=== PATIENT | male | born 1955 | race Caucasian/White ===

== ENCOUNTER 2017-03-06 16:11 | Inpatient (IN) | payer BC ==
[~2017-03-06] VITALS: Ht 177.8 cm; Wt 69.4 kg
[2017-03-06] VITALS (10 sets, daily range): BP systolic 111–156; BP diastolic 71–91
[~2017-03-06 16:11] MED LIST: ASPIR 8181 MG PO; ATENOLOL50 MG PO; CATAPRES-TTS 11 EACH TD; CHLORDIAZEPOXID25 MG PO; CLONAZEPAM0.5 MG PO; CLONIDINE HCL0.1 MG PO; DICYCLOMINE HCL20 MG PO; FLAGYL250 MG PO; HUMIRA40 MG/0.8 SQ; LEVAQUIN500 MG PO; LEXAPRO10 MG PO; LOSARTAN POTAS100 MG PO; LOSARTAN POTASS50 MG PO; MEDROL4 M1 PO; METRONIDAZOLE500 MG PO; NORCO 10-325 T1 EACH PO; ORENCIA125 MG/1 M IM; ROBAXIN750 MG PO; SOMA350 MG PO; TRAZODONE HCL50 MG PO; VIAGRA; XANAX0.5 MG PO; XIFAXAN550 MG PO; Z.0.CELEBREX200 MG PO; Z.0.HUMIRA40 MG/0.1 SQ; Z.0.LOSARTAN POTASS5 PO; Z.0.NORCO 10-325 T1 PO; Z.0.TORADOL10 MG PO
[2017-03-06] MEDS ORDERED: SODIUM CHLORIDE 0.9% 1000ML 1,000 ML IV SCH (16:45)
[2017-03-06] MEDS ORDERED: REMERON15 MG PO (17:41)
[2017-03-06] MEDS ORDERED: NORCO 10-325 T1 EACH PO (17:45)
[2017-03-06] MEDS ORDERED: ISONIAZID300 MG PO (17:45)
[2017-03-06] MEDS ORDERED: ASPIR 8181 MG PO (17:45)
[2017-03-06] MEDS ORDERED: ABATACEPT 125 MG SCH (17:45)
[2017-03-06] MEDS ORDERED: METOPROLOL TART25 MG PO (17:45)
[2017-03-06] MEDS ORDERED: ATORVASTATIN CA10 MG PO (17:45)
[2017-03-06] MEDS ORDERED: LIDOCAINE HCL 4% 50 ML BTL TOP SCH (17:45)
[2017-03-06] MEDS ORDERED: LIDOCAINE HCL50 ML TOP (17:45)
[2017-03-06] MEDS ORDERED: PYRIDOXINE HCL50 MG PO (17:45)
[2017-03-06] MEDS ORDERED: ALPRAZOLAM 0.5 MG TAB PO PRN (17:45)
[2017-03-06] MEDS: HYDROCODONE/APAP 10MG-325MG TAB PO PRN (18:30)
[2017-03-06] MEDS: METOPROLOL TARTRATE 25 MG TAB PO SCH (18:30)
[2017-03-06] MEDS: SODIUM CHLORIDE 0.9% 1000ML 1,000 ML IV SCH (18:30)
[2017-03-06] MEDS: ISONIAZID 300 MG TAB PO SCH (18:30)
[2017-03-06 19:07] LABS: ANION GAP 13.2 mmol/L (8-16); BLOOD UREA NITROGEN 8 mg/dL (7-26); BUN/CREATININE RATIO 11 (6-25); CALCIUM 8.6 mg/dL (8.4-10.2); CARBON DIOXIDE 26 mmol/L (22-29); CHLORIDE 78 mmol/L (98-107); EST GLOMERULAR FILTRATION RATE > 60 ML/MIN (60-); GLUCOSE 85 mg/dL (74-118); POTASSIUM 3.2 mmol/L (3.5-5.1)
[2017-03-06 19:09] LABS: SODIUM 114 mmol/L (136-145)
[2017-03-06] MEDS: LIDOCAINE 5% PATCH TP SCH (19:47)
--- NOTE | 2017-03-06 20:28 | History and Physical ---
DATE OF : 1955 CHIEF COMPLAINT: A 61-year-old gentleman, who comes in with diarrhea and was found to have hyponatremia. HISTORY OF PRESENTING ILLNESS: . Johnathon Juan, who had upper respiratory viral syndrome, cough, from his about a week ago. He continued to have diarrhea, which was watery and not able to stop it. The patient continued with fluid resuscitation at home, and this morning, the patient fell multiple times hurting his right shoulder and left shoulder and came into the emergency room for pain, was found to have hyponatremia and transferred to the ICU here. HOME MEDICATIONS: inflammatory arthritis, mirtazapine for depression, alprazolam for anxiety, gabapentin for anxiety, aspirin, atorvastatin, pyridoxine, isoniazid, lidocaine, hydrocodone, metoprolol tartrate. ALLERGIES: PENICILLIN, CAUSES UPSET STOMACH AND VOMITING. SURGICAL HISTORY: History of multiple back surgeries, history of cholecystectomy recently and also, colon resection too for multiple diverticulosis. Patient also has a history of rheumatoid arthritis, history of hyperlipidemia, history of recent questionable exposure to TB; therefore on TB medication. Patient is on pain medication, also has a history of hypertension too. SOCIAL HISTORY: No history of EtOH at this time. Patient was heavy alcoholic about 2 years ago. History of depression. Lives with . Positive for smoking history. REVIEW OF SYSTEMS: Negative for chest pain. Positive for shortness of breath. Positive for nausea and vomiting and diarrhea. No constipation. No rectal bleeding. No hematochezia, no hematemesis. Positive for altered mental status changes according to the . EXAMINATION GENERAL: Patient is alert and oriented times 3 at this time. VITALS: Stable. HEENT: Normocephalic, atraumatic. Pupils react to light and accommodation. CVS: S1/S2 normal. Regular rate and rhythm. ABDOMEN: Nontender. Bowel sounds are exacerbated. EXTREMITIES: No clubbing, no cyanosis, no edema. LABS: Initial labs from the ER showed a sodium of 119, potassium is 3.6, BUN is 7, creatinine 1.0. ALP 93, ALT 37, TP was 1.3. Patient's white count is high at 14,000, the second was 11.2 and no left shift noted either. ASSESSMENT: Hyponatremia secondary to dehydration. Plan is to continue with fluids. Start him on normal saline at 70 mL an hour. Renal consult has been done as the patient used to have high salt and Lasix. Will continue monitor patient in the ICU. The patient is asking for pain medication, as the patient not to take any pain medicine secondary to mental status changes. Consult with Dr. Ornelas has been done. Further recommendations as per clinical course. Will continue monitoring the patient and laboratories in the morning. Restart all his home medications too. We will also continue monitoring his white count at this point in time. No antibiotic required. Symptomatic care. Job#: [id number] CQ
[2017-03-06] MEDS ORDERED: SODIUM CHLORIDE 1 GM TAB PO SCH (20:30)
[2017-03-06] MEDS: MIRTAZAPINE 15 MG TAB PO SCH (21:08)
[2017-03-06] MEDS: ATORVASTATIN 10 MG TAB PO SCH (21:08)
[2017-03-06] MEDS: PYRIDOXINE HCL 50 MG TAB PO SCH (21:17)
[2017-03-07] VITALS (24 sets, daily range): BP systolic 92–148; BP diastolic 58–91
[2017-03-07] MEDS: SODIUM CHLORIDE 0.9% 1000ML 1,000 ML IV SCH ×3 (02:47→18:43)
[2017-03-07] MEDS: HYDROCODONE/APAP 10MG-325MG TAB PO PRN ×2 (03:53→13:15)
[2017-03-07 06:12] LABS: BASOPHILS % 0.2 % (0.0-1.0); EOSINOPHILS # (AUTO) 0.2 (0.0-0.4); EOSINOPHILS % 1.5 % (0.0-6.0); HEMATOCRIT 33.9 % (38.2-49.6); HEMOGLOBIN 12.4 g/dL (14.0-18.0); LYMPHOCYTES # (AUTO) 1.2 (1.0-3.2); LYMPHOCYTES % 8.9 % (18.0-39.1); MEAN CORPUSCULAR HEMOGLOBIN 31.6 pg (28-32); MEAN CORPUSCULAR HGB CONC 36.6 g/dL (31-35); MEAN CORPUSCULAR VOLUME 86.3 fL (81-99); MONOCYTES # (AUTO) 1.1 (0.2-0.8); MONOCYTES % 8.4 % (4.4-11.3); NEUTROPHILS # (AUTO) 10.4 (2.1-6.9); NEUTROPHILS % 80.1 % (38.7-80.0); PLATELET COUNT 194 x10e3/uL (140-360); RED BLOOD COUNT 3.93 x10e6/uL (4.3-5.7); RED CELL DISTRIBUTION WIDTH 13.4 % (11.7-14.4)
[2017-03-07 07:15] LABS: POTASSIUM 3.3 mmol/L (3.5-5.1)
[2017-03-07 07:16] LABS: ANION GAP 11.3 mmol/L (8-16); BLOOD UREA NITROGEN 7 mg/dL (7-26); BUN/CREATININE RATIO 11 (6-25); CARBON DIOXIDE 21 mmol/L (22-29); CHLORIDE 88 mmol/L (98-107); CREATININE, SERUM 0.63 mg/dL (0.72-1.25); EST GLOMERULAR FILTRATION RATE > 60 ML/MIN (60-); GLUCOSE 81 mg/dL (74-118)
[2017-03-07 07:17] LABS: SODIUM 117 mmol/L (136-145)
[2017-03-07] MEDS ORDERED: SODIUM CHLORIDE 1 GM TAB PO ONE (07:20)
[2017-03-07 08:08] LABS: POTASSIUM,URINE 30.4 mmol/L
[2017-03-07] MEDS: ASPIRIN 81 MG CHEW TAB PO SCH (09:30)
[2017-03-07] MEDS: LIDOCAINE 5% PATCH TP SCH (09:31)
[2017-03-07] MEDS: METOPROLOL TARTRATE 25 MG TAB PO SCH ×2 (09:31→17:00)
[2017-03-07] MEDS ORDERED: ABATACEPT 125 MG SCH (09:45)
[2017-03-07] MEDS ORDERED: POTASSIUM CHLORIDE 20 MEQ TAB CR PO STA (11:22)
[2017-03-07 12:37] LABS: THYROID STIMULATING HORMONE 0.13 uIU/mL (0.350-4.940)
[2017-03-07] MEDS ORDERED: SODIUM CHLORIDE 1 GM TAB PO SCH (17:00)
[2017-03-07] MEDS: ISONIAZID 300 MG TAB PO SCH (17:26)
[2017-03-07] MEDS: PYRIDOXINE HCL 50 MG TAB PO SCH (21:15)
[2017-03-07] MEDS: MIRTAZAPINE 15 MG TAB PO SCH (21:15)
[2017-03-07] MEDS: ATORVASTATIN 10 MG TAB PO SCH (21:15)
[2017-03-08] VITALS (16 sets, daily range): BP systolic 105–147; BP diastolic 65–119
[2017-03-08] MEDS: SODIUM CHLORIDE 0.9% 1000ML 1,000 ML IV SCH ×2 (03:25→12:03)
[2017-03-08 07:08] LABS: ANION GAP 9.6 mmol/L (8-16); BLOOD UREA NITROGEN 9 mg/dL (7-26); BUN/CREATININE RATIO 13 (6-25); CALCIUM 7.9 mg/dL (8.4-10.2); CARBON DIOXIDE 23 mmol/L (22-29); CHLORIDE 94 mmol/L (98-107); EST GLOMERULAR FILTRATION RATE > 60 ML/MIN (60-); GLUCOSE 110 mg/dL (74-118); MAGNESIUM 1.6 MG/DL (1.3-2.1); POTASSIUM 3.6 mmol/L (3.5-5.1); SODIUM 123 mmol/L (136-145)
[2017-03-08] MEDS: HYDROCODONE/APAP 10MG-325MG TAB PO PRN (07:23)
[2017-03-08] MEDS ORDERED: SODIUM CHLORIDE 1 GM TAB PO SCH (09:00)
[2017-03-08] MEDS: ASPIRIN 81 MG CHEW TAB PO SCH (09:07)
[2017-03-08] MEDS: METOPROLOL TARTRATE 25 MG TAB PO SCH ×2 (09:07→18:32)
[2017-03-08] MEDS: LIDOCAINE 5% PATCH TP SCH (09:07)
[2017-03-08] MEDS ORDERED: MAGNESIUM SULFATE 2GM/50ML 50 ML IV ONE (10:45)
[2017-03-08 11:10] LABS: PHOSPHORUS 1.8 MG/DL (2.3-4.7); URIC ACID 2.1 mg/dL (3.5-7.2)
[2017-03-08] MEDS: SODIUM CHLORIDE 1 GM TAB PO SCH ×2 (15:00→21:09)
[2017-03-08] MEDS: ISONIAZID 300 MG TAB PO SCH (18:32)
[2017-03-08] MEDS: PYRIDOXINE HCL 50 MG TAB PO SCH (21:09)
[2017-03-08] MEDS: ATORVASTATIN 10 MG TAB PO SCH (21:09)
[2017-03-08] MEDS: MIRTAZAPINE 15 MG TAB PO SCH (21:09)
[2017-03-09] VITALS: BP 140/70
[2017-03-09] MEDS: SODIUM CHLORIDE 0.9% 1000ML 1,000 ML IV SCH (02:58)
[2017-03-09 04:00] VITALS: BP 161/87
[2017-03-09 06:37] LABS: ALANINE AMINOTRANSFERASE 26 IU/L (0-55); ALBUMIN 2.5 g/dL (3.5-5.0); ALBUMIN/GLOBULIN RATIO 0.7 (0.8-2.0); ALKALINE PHOSPHATASE 83 IU/L (40-150); ANION GAP 10.8 mmol/L (8-16); BLOOD UREA NITROGEN 8 mg/dL (7-26); BUN/CREATININE RATIO 11 (6-25); CALCIUM 8.3 mg/dL (8.4-10.2); CARBON DIOXIDE 24 mmol/L (22-29); CHLORIDE 98 mmol/L (98-107); CREATININE, SERUM 0.72 mg/dL (0.72-1.25); EST GLOMERULAR FILTRATION RATE > 60 ML/MIN (60-); GLUCOSE 87 mg/dL (74-118); PHOSPHORUS 2.5 MG/DL (2.3-4.7); POTASSIUM 3.8 mmol/L (3.5-5.1); SODIUM 129 mmol/L (136-145)
[2017-03-09] MEDS ORDERED: CLONIDINE HCL 0.1 MG TAB PO ONE (07:00)
[2017-03-09 07:57] VITALS: BP 145/69
[2017-03-09] MEDS: ASPIRIN 81 MG CHEW TAB PO SCH (09:24)
[2017-03-09] MEDS: METOPROLOL TARTRATE 25 MG TAB PO SCH (09:25)
[2017-03-09] MEDS: LIDOCAINE 5% PATCH TP SCH (09:25)
== END 2017-03-09 10:13 | disposition home or self-care (01) | DRG 641 ==
LOC: ICU 16:11 → MED/SURG 03-08 11:48
PROVIDERS: ADMIT Family Medicine; ATTEND Family Medicine
DX: E87.1 Hypo-osmolality and hyponatremia (principal); E86.0 Dehydration; F03.90 Unspecified dementia, unspecified severity, without behavioral disturbance, psychotic disturbance, mood disturbance, and anxiety; R19.7 Diarrhea, unspecified; E87.6 Hypokalemia; F41.9 Anxiety disorder, unspecified; F32.9 Major depressive disorder, single episode, unspecified; M06.9 Rheumatoid arthritis, unspecified; Z20.1 Contact with and (suspected) exposure to tuberculosis; I25.10 Atherosclerotic heart disease of native coronary artery without angina pectoris
CPT/HCPCS: 36415; 80048; 80053; 83735; 83935; 84100; 84133; 84295; 84300; 84443; 84550; 85025; J7030

== ENCOUNTER 2017-04-06 08:33 | Emergency (ER) | payer BC ==
[~2017-04-06] VITALS: Ht 177.8 cm; Wt 69.4 kg
[~2017-04-06 08:33] MED LIST changes: +ATORVASTATIN CA10 MG PO; +ISONIAZID300 MG PO; +LIDOCAINE HCL50 ML TOP; +METOPROLOL TART25 MG PO; +PYRIDOXINE HCL50 MG PO; +REMERON15 MG PO
[2017-04-06] MEDS ORDERED: ALBUTEROL/IPRATROPIUM 3 ML NEB NEB ONE (09:15)
[2017-04-06] MEDS ORDERED: ACETAMINOPHEN/CODEINE ELIX 120-12 MG/5 ML UDC NG ONE (09:15)
[2017-04-06] MEDS ORDERED: CLINDAMYCIN PHOS 600 MG/ 4 ML VIAL IM ONE (09:15)
[2017-04-06 15:22] VITALS: BP 146/80
== END 2017-04-06 11:45 | disposition home or self-care (01) ==
LOC: FSED 08:33
DX: R09.1 Pleurisy (principal); J90 Pleural effusion, not elsewhere classified; F17.210 Nicotine dependence, cigarettes, uncomplicated
CPT/HCPCS: 71046; 71260; 80048; 85025; 99283

== ENCOUNTER 2017-04-27 10:30 | Inpatient (IN) | payer BC ==
[~2017-04-27] VITALS: Ht 177.8 cm; Wt 68.2 kg
--- OUTSIDE RECORDS SUMMARY | 2017-04-27 10:34 | XMS REPORT | Clinical Summary ---
Author Author [facility] Organization [facility] Address Unknown Phone Unavailable Care Team Providers Care Environmental Health Physician Name Role Phone Asked, Pcp PCP Unavailable Allergies Active Allergy Reactions Severity Noted Date Comments Penicillins 04/15/2016 FAINTING/VOMITING Current Medications Prescription Sig. Disp. Refills Start End Date Status Date ALPRAZolam (XANAX) 1 MG Take 1 mg by mouth Active tablet nightly as needed for anxiety. abatacept (ORENCIA Inject 125 mg under the Active CLICKJECT) 125 mg/mL skin every 7 days. auto-injector aspirin (ECOTRIN) 81 MG Take 81 mg by mouth Active enteric coated tablet daily. clonIDINE (CATAPRES) 0.1 Take 0.1 mg by mouth 2 04/27/19 Discontin MG tablet (two) times a day. 17 ued losartan (COZAAR) 100 MG Take 100 mg by mouth 04/27/19 Discontin tablet daily. 17 ued atorvastatin (LIPITOR) 20 Take 20 mg by mouth 04/27/19 Discontin MG tablet daily. 17 ued atorvastatin (LIPITOR) 40 Take 1 tablet (40 mg 30 tablet 0 04/27/19 05/28/19 MG tablet total) by mouth daily for 17 17 30 days. metoprolol tartrate Take 1 tablet (25 mg 60 tablet 0 04/27/19 (LOPRESSOR) 25 mg tablet total) by mouth 2 (two) 17 17 times a day for 30 days. ferrous sulfate 325 (65 Take 1 tablet (325 mg 60 tablet 0 04/27/19 05/28/19 FE) MG tablet total) by mouth 2 (two) 17 17 times a day with meals for 30 days. acetaminophen-codeine Take 1 tablet by mouth 40 tablet 0 04/27/19 (TYLENOL WITH CODEINE #3) every 6 (six) hours as 17 17 300-30 mg per tablet needed for moderate pain for up to 40 doses. 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 Status post coronary artery bypass with autogenous graft, three grafts 04/21 Blood loss anemia 04/21/2016 Encounters Date Type Specialty Care Team Description 04/21/2016 Hospital Cardiovascular Joel Adam MD Status post coronary - Encounter artery bypass with 04/27/2016 autogenous graft, three grafts (Primary Dx) after 04/26/2016 Social History Tobacco Use Types Packs/Day Years Used Date Current Every Day Smoker 1 40 Comments: trying to quit Alcohol Use Drinks/Week oz/Week Comments No Sex Assigned at Date Recorded Not on file Last Filed Vital Signs Vital Sign Reading Time Taken Blood Pressure 110/63 04/27/2016 11:39 AM CRITICAL CARE NURSE Pulse 76 04/27/2016 11:39 AM CRITICAL CARE NURSE Temperature 36.2 C (97.1 F) 04/27/2016 11:39 AM CRITICAL CARE NURSE Respiratory Rate 14 04/27/2016 11:39 AM CRITICAL CARE NURSE Oxygen Saturation 93% 04/27/2016 11:39 AM CRITICAL CARE NURSE Inhaled Oxygen - - Concentration Weight 59.3 kg (130 lb 11.2 oz) 04/27/2016 5:19 AM CRITICAL CARE NURSE Height - - Body Mass Index 18.75 04/27/2016 5:19 AM CRITICAL CARE NURSE Plan of Treatment Health Maintenance Due Date Last Done Comments COLONOSCOPY 07/22/2003 ZOSTER VACCINE 2013 INFLUENZA VACCINE 10/04/2016 Implants Implanted Type Area Electronic Heat Seal Operator Device Expiration Model / Identifier Date Serial / Lot Lead Pace Bautista Mycrdl Unipol Tmpry Cardiovasc N/A: N/A [employer] [place] - [id number] / Streamline - [id number] ular CARDIAC SRGRY / Implanted: 04/21/2016 (Quantity not Implants on file) Lead Pace Bautista Mycrdl Unipol Tmpry Cardiovasc N/A: N/A [employer] SkillPages - 6500F / Streamline - [id number] ular CARDIAC SRGRY / Implanted: 04/21/2016 (Quantity not Implants on file) Chamber Sgl Jerry Dry Suct 1wy Vlv Surgical N/A: N/A TELEFLEX S 1100 Adlt Pedi - [id number] Implants; MEDICAL [id number] / Implanted: 04/21/2016 (Quantity not Expanders; / on file) Extenders; Surgical Wires Chamber Sgl Jerry Dry Suct 1wy Vlv Surgical N/A: N/A TELEFLEX S 1100 Adlt Pedi - [id number] Implants; MEDICAL [id number] / Implanted: 04/21/2016 (Quantity not Expanders; / on file) Extenders; Surgical Wires Hope Perph Vasclr Ptfe 1.2x10cm Vascular N/A: N/A BARD PERIPHERAL [id number] / 1.65mm - [id number] Graft VASCULAR / Implanted: 04/21/2016 (Quantity not [id number] on file) Results * POC glucose (04/27/2016 11:41 AM) Only the most recent of 6 results within the time period is included. Component Value Ref Range POC glucose 108 (H) 65 - 99 mg/dL Comment: [facility] Notified RN Meter ID: [id number] Packing And Final Assembly Supervisor: Isra Kamara Specimen Performing Laboratory [facility] DEPARTMENT OF PATHOLOGY AND GENOMIC MEDICINE [address] [place] [phone] * Estimated GFR (04/26/2016 4:37 AM) Component Value Ref Range GFR Non Af Amer 85 mL/min/1.73 m2 GFR Af Amer >90 mL/min/1.73 m2 Comment: Chronic kidney disease: <60 mL/min/1.73m2 Kidney failure: <15 mL/min/1.73m2 The estimated GFR is calculated from the IDMS-traceable Modification of Diet in Renal Disease Equation. The accuracy of the calculation is poor when the creatinine is normal. Calculated values >90 mL/min/1.73m2 are not reported. This equation has not been validated in children (<18 years), women, the elderly (>70 years), or ethnic groups other than Caucasians and Americans. Specimen Performing Laboratory Plasma specimen [facility] DEPARTMENT OF PATHOLOGY AND GENOMIC MEDICINE [address] [place] [phone] * Hemoglobin & hematocrit (04/26/2016 4:37 AM) Component Value Ref Range HGB 8.8 (L) 14.0 - 18.0 g/dL HCT 27.3 (L) 41.0 - 51.0 % Specimen Performing Laboratory Blood [facility] DEPARTMENT OF PATHOLOGY AND GENOMIC MEDICINE [address] [place] [phone] * B natriuretic peptide (04/26/2016 4:37 AM) Component Value Ref Range BNP 386 (H) 0 - 100 pg/mL Specimen Performing Laboratory Blood [facility] DEPARTMENT OF PATHOLOGY AND GENOMIC MEDICINE [address] [place] [phone] * Magnesium level (04/26/2016 4:37 AM) Component Value Ref Range Magnesium 2.0 1.6 - 2.4 mg/dL Specimen Performing Laboratory Plasma specimen [facility] DEPARTMENT OF PATHOLOGY AND GENOMIC MEDICINE [address] [place] [phone] Narrative added MG per Ida Gautam RN 04/26/2016 11:23 by [facility] * Basic metabolic panel (04/26/2016 4:37 AM) Component Value Ref Range Sodium 142 135 - 148 mEq/L Potassium 3.7 3.5 - 5.0 mEq/L Chloride 100 98 - 112 mEq/L CO2 25 24 - 31 mEq/L Anion gap 17 (H) 7 - 15 mEq/L Comment: Starting from June , anion gap calculation no longer incorporates potassium. Please note the change. BUN 13 8 - 23 mg/dL Creatinine 0.9 0.7 - 1.2 mg/dL Glucose 83 65 - 99 mg/dL Calcium 9.1 8.8 - 10.2 mg/dL Specimen Performing Laboratory Plasma specimen [facility] DEPARTMENT OF PATHOLOGY AND GENOMIC MEDICINE [address] [place] [phone] after 04/26/2016 Insurance Payer Benefit Subscriber ID Type Phone Address Plan / Group [facility] xxxxxxxxx HMO/PPO THCARE CHOICE/CHO ICE +
--- OUTSIDE RECORDS SUMMARY | 2017-04-27 10:35 | XMS REPORT | Continuity of Care Document ---
Author Author [facility] Organization [facility] Address [address] [place] [address] Phone Unavailable Care Team Providers Care Compressor Operator Name Role Phone SO CASTORENA MD PCP Insurance Providers Guarantor Tony Robles Address [address] [place] [address] Email [email or web address] [email or web address] Policy Number [id number] Subscriber's Name Tony Robles Relationship 18 Self / Same As Patient Group Number [id number] Group Name [employer] Effective Date 17 Advance Directives Directive Response Recorded Date/Time Does the patient have an advance directive? No 03/06/17 7:20pm If yes, is advance directive on file with [facility]? No 03/06/17 7:20pm If not on file with [facility] will patient provide a copy? No 01/22/15 5:33pm Do you have a Directive to Physician? No 04/06/17 9:02am Do you have a Medical Power of Wire Stockkeeper? No 04/06/17 9:02am Do you have an out of hospital Do Not Resuscitate Order? No 04/06/17 9:02am Do you have any special needs we should be aware of? No 04/06/17 9:02am Do you have a support person here with you today? Yes 04/06/17 9:02am Did patient receive Notice of Privacy Practices? Yes 04/06/17 9:02am Did patient receive patient rights and responsibilities? Yes 04/06/17 9:02am Problems No problem information available. Medications Current Home Medications Medication Dose Units Route Directions Days Qty Instructions Start Date Abatacept (Orencia) 125 Mg/1 Ml Disp.syrin 125 Mg Intramusc 1ST And The Alprazolam (Xanax) 0.5 Mg Tablet 1 Mg Oral Twice A Day as needed for Anxiety Aspirin (Aspir 81) 81 Mg Tablet.dr 1 Tab Oral Daily Atorvastatin Calcium 10 Mg Tablet 10 Mg Oral Today At 9:00PM 30 Tab Hydrocodone Bit/Acetaminophen ([place] 10-325 Tablet) 1 Each Tablet 1 Tab Oral Every 6 Hours as needed for Pain Isoniazid 300 Mg Tablet 300 Mg Oral Today At 6:00PM 30 Tab Lidocaine Hcl 50 Ml Btl 50 Ml Topically Daily Metoprolol Tartrate 25 Mg Tablet 25 Mg Oral Twice A Day Mirtazapine (Remeron) 15 Mg Tablet 15 Mg Oral Bedtime Pyridoxine Hcl 50 Mg Tablet 50 Mg Oral Bedtime 30 Tab Past Home Medications Medication Directions Ordered Status Adalimumab (Humira) 40 Mg/0.8 Ml Kit, 40 Mg Sub-Q Use As Directed Discontinued Aspirin (Aspir 81) 81 Mg Tablet., 325 Mg Oral Daily Discontinued Atenolol 50 Mg Tablet, 25 Mg Oral Daily Discontinued Carisoprodol (Soma) 350 Mg Tablet, 350 Mg Oral As Needed Discontinued Celecoxib (Celebrex) 200 Mg Capsule, 200 Mg Oral As Needed Discontinued Chlordiazepoxide Hcl 25 Mg Capsule, 25 Mg Oral Every 6 Hours as needed for Anxiety Discontinued Clonazepam 0.5 Mg Tablet, 0.25 Mg Oral Daily Discontinued Clonidine (Catapres-Tts 1) 1 Each Patch.tdwk, 1 Each Transderm Discontinued Clonidine Hcl 0.1 Mg Tablet, 1 Tab Oral Bedtime Discontinued Dicyclomine Hcl 20 Mg Tablet, 20 Mg Oral Four Times Daily Discontinued Escitalopram Oxalate (Lexapro) 10 Mg Tablet, 10 Mg Oral Daily Discontinued Hydrocodone Bit/Acetaminophen ([place] 10-325 Tablet) 1 Each Tablet, 1 Tab Oral Every 4 Hours as needed for Abdominal Pain Discontinued Hydrocodone Bit/Acetaminophen ([place] 10-325 Tablet) 1 Each Tablet, 10 Mg Oral Three Times A Day as needed for Pain Discontinued Hydrocodone Bit/Acetaminophen ([place] 10-325 Tablet) 1 Each Tablet, 1 Each Oral Three Times A Day Discontinued Ketorolac Tromethamine (Toradol) 10 Mg Tablet, 10 Mg Oral Every 6 Hours Discontinued Levofloxacin (Levaquin) 500 Mg Tablet, 500 Mg Oral Daily Discontinued Levofloxacin (Levaquin) 500 Mg Tablet, 500 Mg Oral Daily Discontinued Losartan Potassium 100 Mg Tablet, 100 Mg Oral Daily Discontinued Losartan Potassium 50 Mg Tablet, 100 Mg Oral Daily Discontinued Methocarbamol (Robaxin) 750 Mg Tab, 750 Mg Oral Twice A Day Discontinued Methocarbamol (Robaxin) 750 Mg Tab, 750 Mg Oral Twice A Day Discontinued Methylprednisolone (Medrol) 4 Mg Tab.ds.pk, 4 Mg Oral Discontinued Metronidazole (Flagyl) 250 Mg Tablet, 500 Mg Oral Three Times A Day Discontinued Metronidazole 500 Mg Tablet, 500 Mg Oral Three Times A Day Discontinued Rifaximin (Xifaxan) 550 Mg Tablet, 550 Mg Oral Three Times A Day Discontinued Trazodone Hcl 50 Mg Tablet, 100 Mg Oral Bedtime Discontinued Viagra , As Needed Discontinued Social History Social History Problem Response Recorded Date/Time Onset Date Status Hx Psychiatric Problems Yes 03/06/2017 7:20pm Not Applicable Not Applicable Hx Eating Disorder No 03/06/2017 7:20pm Not Applicable Not Applicable Hx Substance Use Disorder No 03/06/2017 7:20pm Not Applicable Not Applicable Hx Depression Yes 03/06/2017 7:20pm Not Applicable Not Applicable Hx Alcohol Use Y - Occasional use 03/06/2017 7:20pm Not Applicable Not Applicable Hx Substance Use Treatment No 03/06/2017 7:20pm Not Applicable Not Applicable Hx Physical Abuse No 03/06/2017 7:20pm Not Applicable Not Applicable Smoking Status Start Date Stop Date Current every day smoker Hospital Discharge Instructions No hospital discharge instruction information available. Plan of Care Discharge Date 04/06/17 11:45am Disposition HOME, SELF-CARE Condition at Discharge Stable Instructions/Education Provided Pleurisy Forms Provided Work/School Excuse Prescriptions See Medication Section Referrals SO CASTORENA MD Address: [address] [place] [address] [phone] Additional Instructions/Education Discussed working diagnosis of pleurisy and lung mass with patient. Recommend medical therapy and pulmonology consult. FOLLOW UP with MD tomorrow for follow up. Discussed SMOKING CESSATION with patient. ED warnings given to proceed to Hospital ER if symptoms persist or worsen. Functional Status No functional status information available. Allergies, Adverse Reactions, Alerts Allergen Type Severity Reaction Status Last Updated Penicillin Allergy Unknown Active 04/06/17 Immunizations No immunization information available. Vital Signs Acute Vital Signs Vital Response Date/Time Temperature (Fahrenheit) 96.9 degrees F (97.6 - 99.5) 03/09/2017 7:57am Pulse Pulse Rate (adult) 72 bpm (60 - 90) 04/06/2017 3:22pm Respiratory Rate 16 bpm (12 - 24) 04/06/2017 3:22pm Blood Pressure 146/80 mm Hg 04/06/2017 3:22pm Height 5 ft 10 in 04/06/2017 12:10pm Weight 153 lb 04/06/2017 12:10pm Body Mass Index 22.0 kg/m^2 04/06/2017 12:10pm Results Laboratory Results Test Name Result Units Flags Reference Collection Date/Time Result Date/ Time Comments White Blood Count 12.92 x10e3/uL H 4.8-10.8 03/07/2017 5:30am 2017 6:14am Red Blood Count 3.93 x10e6/uL L 4.3-5.7 03/07/2017 5:30am 03/07/2017 6: 14am Hemoglobin 12.4 g/dL L 14.0-18.0 03/07/2017 5:30am 03/07/2017 6:14am Hematocrit 33.9 % L 38.2-49.6 03/07/2017 5:30am 03/07/2017 6:14am Mean Corpuscular Volume 86.3 fL 81-99 03/07/2017 5:30am 03/07/2017 6: 14am Mean Corpuscular Hemoglobin 31.6 pg 28-32 03/07/2017 5:30am 03/07/2017 6:14am Mean Corpuscular Hemoglobin Concent 36.6 g/dL H 31-35 03/07/2017 5:30am 03/07/2017 6:14am Red Cell Distribution Width 13.4 % 11.7-14.4 03/07/2017 5:302017 6:14am Platelet Count 194 x10e3/uL 140-360 03/07/2017 5:3003/07/2017 6: 14am Neutrophils (%) (Auto) 80.1 % H 38.7-80.0 03/07/2017 5:30am 03/07/2017 6 :14am Lymphocytes (%) (Auto) 8.9 % L 18.0-39.1 03/07/2017 5:3003/07/2017 6: 14am Monocytes (%) (Auto) 8.4 % 4.4-11.3 03/07/2017 5:30am 03/07/2017 6: 14am Eosinophils (%) (Auto) 1.5 % 0.0-6.0 03/07/2017 5:3003/07/2017 6: 14am Basophils (%) (Auto) 0.2 % 0.0-1.0 03/07/2017 5:3003/07/2017 6:14am IM GRANULOCYTES % 0.9 % 0.0-1.0 03/07/2017 5:3003/07/2017 6:14am Neutrophils # (Auto) 10.4 H 2.1-6.9 03/07/2017 5:30am 03/07/2017 6: 14am Lymphocytes # (Auto) 1.2 1.0-3.2 03/07/2017 5:30am 03/07/2017 6:14am Monocytes # (Auto) 1.1 H 0.2-0.8 03/07/2017 5:3003/07/2017 6:14am Eosinophils # (Auto) 0.2 0.0-0.4 03/07/2017 5:30am 03/07/2017 6:14am Basophils # (Auto) 0.0 0.0-0.1 03/07/2017 5:3003/07/2017 6:14am Absolute Immature Granulocyte (auto 0.11 x10e3/uL H 0-0.1 03/07/2017 5: 3003/07/2017 6:14am Urine Random Sodium 90 mmol/L 03/07/2017 6:40am 03/07/2017 8:09am Urine Random Potassium 30.4 mmol/L 03/07/2017 6:40am 03/07/2017 8: 09am Sodium Level 129 mmol/L L 136-145 03/09/2017 5:45am 03/09/2017 6:46am Potassium Level 3.8 mmol/L 3.5-5.1 03/09/2017 5:45am 03/09/2017 6:46am Chloride Level 98 mmol/L 98-107 03/09/2017 5:45am 03/09/2017 6:46am Carbon Dioxide Level 24 mmol/L 22-29 03/09/2017 5:45am 03/09/2017 6: 46am Anion Gap 10.8 mmol/L 8-16 03/09/2017 5:45am 03/09/2017 6:46am Blood Urea Nitrogen 8 mg/dL 7-03/09/2017 5:45am 03/09/2017 6:46am Creatinine 0.72 mg/dL 0.72-1.25 03/09/2017 5:45am 03/09/2017 6:46am BUN/Creatinine Ratio 11 6-25 03/09/2017 5:45am 03/09/2017 6:46am Estimat Glomerular Filtration Rate > 60 ML/MIN 60- 03/09/2017 5:45am 6:46am Ranges were taken from the National Kidney Disease Education Program and the National Kidney Foundation literature. Reference ranges: 60 or greater: Normal 16-59 (for 3 consecutive months): Chronic kidney disease 15 or less: Kidney failure Glucose Level 87 mg/dL 74-118 03/09/2017 5:45am 03/09/2017 6:46am Calcium Level 8.3 mg/dL L 8.4-10.2 03/09/2017 5:45am 03/09/2017 6:46am Uric Acid 2.1 mg/dL L 3.5-7.2 03/08/2017 5:45am 03/08/2017 11:21am Phosphorus Level 2.5 MG/DL 2.3-4.7 03/09/2017 5:45am 03/09/2017 6:46am Magnesium Level 1.6 MG/DL 1.3-2.1 03/08/2017 5:45am 03/08/2017 7:14am Total Bilirubin 0.4 mg/dL 0.2-1.2 03/09/2017 5:45am 03/09/2017 6:46am Aspartate Amino Transf (AST/SGOT) 25 IU/L 5-34 03/09/2017 5:45am 2017 6:46am Alanine Aminotransferase (ALT/SGPT) 26 IU/L 0-55 03/09/2017 5:45am 06/2017 6:46am Total Protein 5.9 g/dL L 6.5-8.1 03/09/2017 5:45am 03/09/2017 6:46am Albumin 2.5 g/dL L 3.5-5.0 03/09/2017 5:45am 03/09/2017 6:46am Globulin 3.4 g/dL 2.3-3.5 03/09/2017 5:45am 03/09/2017 6:46am Albumin/Globulin Ratio 0.7 L 0.8-2.0 03/09/2017 5:45am 03/09/2017 6: 46am Alkaline Phosphatase 83 IU/L 40-150 03/09/2017 5:45am 03/09/2017 6: 46am Thyroid Stimulating Hormone (TSH) 0.130 uIU/mL L 0.350-4.940 03/07/2017 11:45am 03/07/2017 12:44pm Urine Osmolality 453 mOsmol/kg . 03/07/2017 6:40am 03/09/2017 7:44pm 24 hr : 300 - 900 Random: 50 - 1400 After 12hr fluid restriction: >850 Performed at: - [facility] [address], [place], [place] [id number] Executive Team Leader: THADDEUS Macdonald MD, Phone: [phone] Procedures No procedure information available. Encounters Encounter Location Arrival/Admit Date Discharge/Depart Date Attending Provider Departed Emergency Room [facility] 04/06/17 8:33am 11:45am DAVE CHAPIN MD Discharged Inpatient [facility] 03/06/17 4:11pm 03/09/17 10:13am SO CASTORENA MD
[2017-04-27] MEDS ORDERED: ALBUTEROL/IPRATROPIUM 3 ML NEB NEB ONE (10:45)
[2017-04-27] MEDS ORDERED: SODIUM CHLORIDE 0.9% 1000ML 1,000 ML IV ONE (10:45)
[2017-04-27] MEDS ORDERED: NALOXONE HCL INJ 0.4 MG/ML AMP IV ONE (10:45)
[2017-04-27 10:54] LABS: BASOPHILS # (AUTO) 0.1 (0.0-0.1); BASOPHILS % 0.6 % (0.0-1.0); EOSINOPHILS # (AUTO) 0.1 (0.0-0.4); EOSINOPHILS % 0.3 % (0.0-6.0); HEMATOCRIT 29.9 % (38.2-49.6); HEMOGLOBIN 9.4 g/dL (14.0-18.0); LYMPHOCYTES # (AUTO) 2.8 (1.0-3.2); LYMPHOCYTES % 18.3 % (18.0-39.1); MEAN CORPUSCULAR HEMOGLOBIN 29.8 pg (28-32); MEAN CORPUSCULAR HGB CONC 31.4 g/dL (31-35); MEAN CORPUSCULAR VOLUME 94.9 fL (81-99); MONOCYTES # (AUTO) 1.2 (0.2-0.8); MONOCYTES % 7.9 % (4.4-11.3); NEUTROPHILS # (AUTO) 9.5 (2.1-6.9); NEUTROPHILS % 62.6 % (38.7-80.0); PLATELET COUNT 158 x10e3/uL (140-360); RED BLOOD COUNT 3.15 x10e6/uL (4.3-5.7); RED CELL DISTRIBUTION WIDTH 15.9 % (11.7-14.4)
[2017-04-27] MEDS ORDERED: DIATRIZOATE MEGL/DIATRIZOA SOD 30 ML BTL PO ONE (11:07)
[2017-04-27 11:08] LABS: ALANINE AMINOTRANSFERASE 22 IU/L (0-55); ALBUMIN 2.7 g/dL (3.5-5.0); ALBUMIN/GLOBULIN RATIO 0.6 (0.8-2.0); ALKALINE PHOSPHATASE 248 IU/L (40-150); ANION GAP 15.8 mmol/L (8-16); BLOOD UREA NITROGEN 22 mg/dL (7-26); BUN/CREATININE RATIO 22 (6-25); CALCIUM 12.3 mg/dL (8.4-10.2); CARBON DIOXIDE 31 mmol/L (22-29); CHLORIDE 101 mmol/L (98-107); CREATININE, SERUM 1.02 mg/dL (0.72-1.25); EST GLOMERULAR FILTRATION RATE > 60 ML/MIN (60-); GLUCOSE 111 mg/dL (74-118); MAGNESIUM 1.5 MG/DL (1.3-2.1); PHOSPHORUS 3.2 MG/DL (2.3-4.7); SODIUM 145 mmol/L (136-145)
[2017-04-27 11:12] LABS: POTASSIUM 2.8 mmol/L (3.5-5.1)
[2017-04-27] MEDS ORDERED: LORAZEPAM INJ 2 MG/ML VIAL IV ONE (11:45)
[2017-04-27] MEDS ORDERED: POTASSIUM CHLORIDE 20MEQ/100ML 200 ML IV ONE (11:45)
[2017-04-27 11:46] LABS: ABG HCO3 34 mmol/L (23-28); ABG PCO2 44 mmHg (41-51); ABG PH 7.49 (7.31-7.41); ABG PO2 86 mmHg (80-105)
--- NOTE | 2017-04-27 12:29 | Diagnostic Imaging Report ---
PROCEDURE: A single AP view of the chest. COMPARISON: Patients [facility], DX, CHEST 2 VIEWS, 04/11/2016, 9:50. Patients [facility], CT, CT CHEST W, 04/27/2017, 11:51. INDICATIONS: AMS, RESPIRATORY DISTRESS FINDINGS: Lines/tubes: None. Lungs: Right upper lobe consolidation and right paratracheal area increased density, as well as opacification of the right lower lung and obscuration of the right hemidiaphragm. Mild prominence of the interstitial markings in the left lung. No consolidation Pleura: Right pleural effusion. Heart and mediastinum: Mild cardiomegaly. Central pulmonary venous congestion. Enlargement of the right hilum Bones: No acute bony abnormalities. Midline sternotomy wires. IMPRESSION: 1. findings highly suspicious for pulmonary neoplasm, with associated effusion. Please see CT chest performed same date for further detail. Jose Francisco Jimenez M.D. Dictated by: Jose Francisco Jimenez M.D. on 04/27/2017 at 12:29 Electronically approved by: Jose Francisco Jimenez M.D. on 04/27/2017 at 12:29
--- NOTE | 2017-04-27 12:33 | Diagnostic Imaging Report ---
Examination: CT head without contrast Clinical Indication: Confusion. Altered mental status. Technique: Transaxial noncontrast images from the skull base through the vertex were obtained. Sagittal and coronal reformatted images were done. Comparison: None. Findings: Scalp: No abnormalities. Bones: Intact. No fractures. No blastic or lytic lesions. Brain sulci: Moderate volume loss for patient's age. Ventricles: No hydrocephalus. . Extra-axial space: No abnormalities. Parenchyma: There are subtle confluent areas of low-attenuation within subcortical and periventricular white matter, nonspecific, but could represent microvascular ischemic disease. No masses, hemorrhage, or acute or chronic cortical based vascular insults. Suprasellar region: No abnormalities. Craniocervical junction: The foramen magnum is patent. No Chiari one malformation. Incidental findings: Atherosclerotic calcification of the cavernous and supraclinoid internal carotid arteries. Impression: 1. No acute intracranial abnormality. 2. Mild chronic microvascular ischemic change. 3. Moderate volume loss for age Signed by: Dr. Phoebe Bower M.D. on 04/27/2017 12:29 PM
--- NOTE | 2017-04-27 13:02 | Diagnostic Imaging Report ---
PROCEDURE: CT scan of the chest abdomen and pelvis WITH intravenous contrast, using standard protocol. TECHNIQUE: The chest abdomen and pelvis was scanned utilizing a multidetector helical scanner from the lung apex through the level of the lesser trochanters after the IV administration of 100 cc of Isovue 370. Coronal and sagittal multiplanar reformations were obtained. Pulmonary embolus protocol was used for the chest. Standard protocol was used for the abdomen and pelvis. COMPARISON: Chest radiograph 04/11/2016, CT abdomen and pelvis with contrast 01/26/2015. Concern for pulmonary embolus. History lung cancer.. INDICATIONS: SHORTNESS OF BREATH, HISTORY OF CANCER FINDINGS: Vasculature: The main pulmonary artery, right and left pulmonary arteries, and their visualized lobar and segmental branches are patent, without filling defect. Of note, the right upper lobe pulmonary artery is completely encased and obliterated by extensive mediastinal and right hilar lymphadenopathy, described below. The pulmonary outflow tract is of normal caliber. There is atherosclerotic calcification in the thoracic aorta and great vessel origins, as well as the [place] coronary arteries. Postsurgical changes of coronary artery bypass graft. No ectasia or aneurysmal dilatation of the thoracic aorta. Lungs and Airways: There is an irregularly marginated, spiculated mass involving the majority of the right lung apex, which is difficult to accurately measure; however, its approximate dimensions are 6 cm transverse by 6.7 cm AP by 4 cm craniocaudal. The mass appears to extend upward from a distorted segmental right upper lobe bronchus, as seen on series 3 image 31. The mass involves the right apical pleura and abuts the anterior first and second ribs without definite erosive change. The lungs are otherwise notable for moderate upper lobe predominant centrilobular emphysematous changes. There is a moderate right pleural effusion with passive atelectasis of the majority of the lower lobe. No left lung nodules are identified though evaluation is slightly limited by respiratory motion artifact. Pleura: Moderate right pleural effusion, average internal attenuation 10-25 Hounsfield units. No pleural nodularity or enhancement. No pneumothorax. Heart and mediastinum: Conglomerate right upper and lower paratracheal lymphadenopathy extends into the right hilum at the level of the mainstem bronchus , and measures approximately 5 cm AP by 5.5 cm transverse by 6.1 cm craniocaudal. As described above, the lymphadenopathy encases and obliterates the right upper lobe pulmonary artery and exerts mass effect on the superior vena cava, which is otherwise patent. Associated hilar lymphadenopathy is seen on series 2 image 58 , and measures approximately 2.9 cm transverse by 2.7 cm AP. The lymphadenopathy exerts mild mass effect on the right mainstem bronchus, without significant luminal compromise. No pericardial effusion. Mild cardiomegaly. Soft tissues: Soft tissues are discussed below. Abdomen: Liver: Innumerable predominantly hypoattenuating lesions, some with peripheral hyperattenuation are identified scattered throughout the right and left lobes. Front [employer] lesions include a 3.2 x 1.9 cm lesion in segment 3 as seen on series 5 image 52, a 2.3 x 2.4 cm lesion in segment 7 seen on series 5 image 21 and a 2.3 x 2.3 cm lesion in segment 6 seen on series 5 image 24. No intrahepatic biliary ductal dilatation. The gallbladder is unremarkable. Spleen: No splenomegaly or focal splenic lesion. Pancreas: No focal pancreatic mass or ductal dilatation. Adrenals: No adrenal nodules. Kidneys: 2.2 cm right and 1.6 cm left renal parenchymal simple cysts. No hydronephrosis, calculi, or solid renal mass lesion. Pelvic organs: The urinary bladder is partially collapsed around a Neal catheter and is otherwise unremarkable. Prostate appears normal. GI tract: Postsurgical changes of partial colectomy with primary anastomosis in the pelvis. No evidence of distention or wall thickening. There is no small bowel dilatation to suggest presence of obstruction. Vasculature: There is a extensive calcified and noncalcified atherosclerotic plaque of the abdominal aorta and major branch vessels, without significant stenosis. The common hepatic artery is replaced to the superior mesenteric artery. The portal vein, splenic vein, and a central superior mesenteric vein are patent. Peritoneum/retroperitoneum: No ascites or pneumoperitoneum. Soft tissues: No focal soft tissue abnormalities with the exception of injection granulomata within the subcutaneous fat of the gluteal regions. Lymph nodes: Surgical clip in the right inguinal region. No pelvic sidewall, retroperitoneal, or mesenteric lymphadenopathy. 9 mm likely metastatic right retrocrural lymph node seen on series 5 image 18. Bones: Sclerotic focus in the left iliac wing may represent a bone island. Multilevel degenerative disc changes of the lumbar spine. Acute moderate compression fracture of T10 with approximately 30% loss of anterior height. Acute moderate anterior compression fracture of T8, with approximately 30% loss of anterior height . Acute moderate anterior compression fracture of T5 with approximately 30% loss of anterior height. Mixed lytic and sclerotic appearance of these 3 vertebral bodies. No significant fracture fragment retropulsion or spinal canal compromise. IMPRESSION: No pulmonary embolus to the level of the segmental branch pulmonary arteries. Large primary lung malignancy centered in the apex of the right upper lobe, with metastatic mediastinal and right hilar lymphadenopathy which encases and obliterates the right upper lobe pulmonary artery and exerts mild mass effect on the superior vena cava and right mainstem bronchus, which remain patent. Presumed malignant moderate right pleural effusion with adjacent lower lobe passive atelectasis. Innumerable hepatic metastases. Multilevel thoracic spine compression fractures, likely pathologic, most severe at T5. No fracture fragment retropulsion or spinal canal compromise. Incidental findings include atherosclerotic vascular disease, postsurgical changes of the colon and mediastinum, and moderate pulmonary emphysematous changes. Dictated by: Johnathon Garcia M.D. on 04/27/2017 at 13:01 Electronically approved by: Johnathon Garcia M.D. on 04/27/2017 at 13:01
--- NOTE | 2017-04-27 13:03 | Diagnostic Imaging Report ---
PROCEDURE: CT ABDOMEN AND PELVIS WITH CONTRAST FINDINGS: See impression IMPRESSION: Refer to "CT CHEST WITH CONTRAST" also performed 04/27/2017 for full dictated report. Dictated by: Johnathon Garcia M.D. on 04/27/2017 at 13:02 Electronically approved by: Johnathon Garcia M.D. on 04/27/2017 at 13:02
[2017-04-27] MEDS ORDERED: LEVOFLOXACIN 750MG/D5W 150ML 150 ML IV ONE (13:15)
[2017-04-27] MEDS ORDERED: VANCOMYCIN 1GM/NS 250 ML 250 ML IV ONE (13:15)
[2017-04-27] MEDS ORDERED: MORPHINE SULFATE 2 MG/ML SYR IV PRN (14:15)
[2017-04-27] MEDS ORDERED: SODIUM CHLORIDE FLUSH 10 ML SYR INJ PRN (14:15)
[2017-04-27] MEDS ORDERED: CALCITONIN SALMON 400 IU/2ML VIAL SC NR (14:30)
[2017-04-27] MEDS: SODIUM CHLORIDE 0.9% 1000ML 1,000 ML IV SCH (14:30)
[2017-04-27] MEDS ORDERED: IOPAMIDOL 300MG/ML 100 ML INFUS..BTL IV ONE (14:31)
[2017-04-27] MEDS ORDERED: SODIUM CHLORIDE 0.9% 50ML 50 ML ONE (14:31)
[2017-04-27] MEDS: LORAZEPAM INJ 2 MG/ML VIAL IV PRN ×2 (16:34→22:30)
[2017-04-27] MEDS: METOPROLOL TARTRATE 25 MG TAB PO SCH (16:37)
--- NOTE | 2017-04-27 17:16 | History and Physical ---
CHIEF COMPLAINT: A 61-year-old male comes in with acute mental status changes. HISTORY OF PRESENTING ILLNESS: This is . Johnathon Juan with a recent history of a lung mass, who was in his usual state of health until the patient was found to be obtunded with altered mental status today. Came into the ER, was given Narcan and got better and admitted for acute mental status change and also a lung mass with probable metastasis to the vertebrae. PAST MEDICAL HISTORY: History of alcoholism, history of hypertension, history of testosterone insufficiency, history of chronic pain. Also, patient has a history of depression/anxiety. Patient has been recently started for DVT prophylaxis, too. He has history of rheumatoid arthritis on Orencia. Patient is with a recent history of hyponatremia, too. MEDICINES HE TAKES AT HOME: Orencia 125 mg, alprazolam 0.5, aspirin 81 mg, atorvastatin 10 mg, hydrocodone, [place] 10/325 q.6 h., isoniazid 300 mg, lidocaine gel, metoprolol 25 mg twice a day, mirtazapine 15 mg at nighttime, pyridoxine 50 mg nightly. SOCIAL HISTORY: A history of smoking, history of ETOH in the past. However, the patient denies any alcohol at this time. SURGICAL HISTORY: History of multilevel lumbar laminectomy with fusion in the lumbar spine, too. REVIEW OF SYSTEMS: Cannot be obtained. The patient is obtunded right now. PHYSICAL EXAMINATION GENERAL: Patient is obtunded, __alert and oriented x3. Pupils are pinpointed and apparently has gotten better with the Narcan today. HEENT: Normocephalic, atraumatic. Pupils are pinpoint. CARDIOVASCULAR: S1 and S2 normal. Regular rate and rhythm. ABDOMEN: Scaphoid. LUNGS: Positive for crackles in lung bases and also multiple rhonchi in bilateral lung [place]. EXTREMITIES: No clubbing, no cyanosis, no edema. NEUROLOGICAL: The patient is cachectic. LABORATORY VALUES: ABG: pH was 7.49, bicarb of 34. Chemistry: Sodium 145, potassium of 2.8, BUN of 22 and creatinine 1.2. Hematology: White count was 15,000, hemoglobin of 9.5, hematocrit of 29.9. Blood gases were mentioned above. IMAGING STUDIES: Chest CT and abdominal CT were done and show pulmonary embolism, large primary lung malignancy seen on the apex of the right upper lobe with metastatic mediastinal and right hilar lymphadenopathy, presumed malignant type pleural effusion and hepatic metastasis, multilevel thoracic spine with compression fractures and findings of a dysphoric vascular disease, too. A brain CT was also done which shows no acute intracranial abnormalities, moderate volume loss for age. ASSESSMENT 1. Acute mental status changes possibly secondary to overdosage of hydrocodone. Will continue with the Narcan. With his mental status, will keep him in the IMCU. 2. Lung mass. Recently has been seen by Dr. Monteiro. A bronc has been done, and biopsy has been taken. So far has been negative for malignancy. Per patient, he has had a chest x-ray about 4 months prior and did not have any findings, which is leading towards more of a infectious etiology, but with the metastasis in the bone and also in the liver again favoring malignancy again. Patient has a history of alcoholism and also a vitamin B12 deficiency. Will go ahead and check his B12, check his thyroid, and also check his liver functions. Will keep him hydrated and also consult Dr. Monteiro. Probably will need also an ID consult, which will be Dr. Stinson. 3. Further workup on clinical course. At this time, will keep him in intermediate care and keep checking his vitals and restart of some home medications except Orencia. Further recommendations on clinical course. Will continue to monitor the patient and also give him sedation at this time for agitation. Job#: [id number] EV
--- OUTSIDE RECORDS SUMMARY | 2017-04-27 17:22 | XMS REPORT ---
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 Allergies, Adverse Reactions, Alerts This patient has no known allergies or adverse reactions. Medications This patient has no known medications. Results Test Description Test Time Test Comments Text Results Atomic Results Result Comments CT BRAIN WO [place] [address] Patient Name: TONY ROBLES MR #: [id number] : 1955 Age/Sex: 61/M Req # : [id number] Adm Physician: Ordered by: MAYRA ELIAS MD Report #: [id number] Location: ER Room/Bed: Procedure: [id number] CT/CT BRAIN WO Exam Date: 04/27/17 Exam Time: 1150 REPORT STATUS: Signed Examination: CT head without contrast Clinical Indication: Confusion. Altered mental status. Technique: Transaxial noncontrast images from the skull base through the vertex were obtained. Sagittal and coronal reformatted images were done. Comparison: None. Findings: Scalp: No abnormalities. Bones: Intact. No fractures. No blastic or lytic lesions. Brain sulci: Moderate volume loss for patient's age. Ventricles: No hydrocephalus. . Extra-axial space: No abnormalities. Parenchyma: There are subtle confluent areas of low- attenuation within subcortical and periventricular white matter, nonspecific, but could represent microvascular ischemic disease. No masses, hemorrhage, or acute or chronic cortical based vascular insults. Suprasellar region: No abnormalities. Craniocervical junction: The foramen magnum is patent. No Chiari one malformation. Incidental findings: Atherosclerotic calcification of the cavernous and supraclinoid internal carotid arteries. Impression: 1. No acute intracranial abnormality. 2. Mild chronic microvascular ischemic change. 3. Moderate volume loss for age Signed by: Dr. Phoebe Estevez M.D. on 04/27/2017 12:29 PM Dictated By: PHOEBE ROMERO MD 1229 Transcribed By: CARLOS on 04/27/17 1229 COPY TO: MAYRA ELIAS MD CHEST SINGLE (PORTABLE) [place] [address] Patient Name: TONY ROBLES MR #: [id number] : 1955 Age/Sex: 61/M Req #: [id number] Adm Physician: Ordered by: MAYRA ELIAS MD Report #: [id number] Location: ER Room/Bed: Procedure: [id number] DX/CHEST SINGLE (PORTABLE) Exam Date: 04/27/17 Exam Time: 1205 REPORT STATUS: Signed PROCEDURE: A single AP view of the chest. COMPARISON: [facility], DX, CHEST 2 VIEWS, 04/11/2016, 9:50. [facility], CT, CT CHEST W, , 11:51. INDICATIONS: AMS, RESPIRATORY DISTRESS FINDINGS: Lines/tubes: None. Lungs: Right upper lobe consolidation and right paratracheal area increased density, as well as opacification of the right lower lung and obscuration of the right hemidiaphragm. Mild prominence of the interstitial markings in the left lung. No consolidation Pleura: Right pleural effusion. Heart and mediastinum: Mild cardiomegaly. Central pulmonary venous congestion. Enlargement of the right hilum Bones: No acute bony abnormalities. Midline sternotomy wires. IMPRESSION: 1. findings highly suspicious for pulmonary neoplasm, with associated effusion. Please see CT chest performed same date for further detail. Apryl Jimenez M.D. Dictated by: Apryl Jimenez M.D. on 04/27/2017 at 12:29 Electronically approved by: Apryl Jimenez M.D. on 04/27/2017 at 12:29 Dictated By: APRYL JIMENEZ MD 1229 Transcribed By: THAIS on 04/27/17 1229 COPY TO: MAYRA ELIAS MD CT CHEST W [place] [address] Patient Name: TONY ROBLES MR #: [id number] : 1955 Age/Sex: 61/M Req # : [id number] Adm Physician: Ordered by: MAYRA ELIAS MD Report #: [id number] Location: ER Room/Bed: Procedure: [id number] CT/CT CHEST W Exam Date: 04/27/17 Exam Time: 1150 REPORT STATUS: Signed PROCEDURE: CT scan of the chest abdomen and pelvis WITH intravenous contrast, using standard protocol. TECHNIQUE: The chest abdomen and pelvis was scanned utilizing a multidetector helical scanner from the lung apex through the level of the lesser trochanters after the IV administration of 100 cc of Isovue 370. Coronal and sagittal multiplanar reformations were obtained. Pulmonary embolus protocol was used for the chest. Standard protocol was used for the abdomen and pelvis. COMPARISON: Chest radiograph 04/11/2016, CT abdomen and pelvis with contrast 01/26/2015. Concern for pulmonary embolus. History lung cancer.. INDICATIONS: SHORTNESS OF BREATH, HISTORY OF CANCER FINDINGS: Vasculature: The main pulmonary artery, right and left pulmonary arteries, and their visualized lobar and segmental branches are patent, without filling defect. Of note, the right upper lobe pulmonary artery is completely encased and obliterated by extensive mediastinal and right hilar lymphadenopathy, described below. The pulmonary outflow tract is of normal caliber. There is atherosclerotic calcification in the thoracic aorta and great vessel origins, as well as the [place] coronary arteries. Postsurgical changes of coronary artery bypass graft. No ectasia or aneurysmal dilatation of the thoracic aorta. Lungs and Airways: There is an irregularly marginated, spiculated mass involving the majority of the right lung apex, which is difficult to accurately measure; however, its approximate dimensions are 6 cm transverse by 6.7 cm AP by 4 cm craniocaudal. The mass appears to extend upward from a distorted segmental right upper lobe bronchus, as seen on series 3 image 31. The mass involves the right apical pleura and abuts the anterior first and second ribs without definite erosive change. The lungs are otherwise notable for moderate upper lobe predominant centrilobular emphysematous changes. There is a moderate right pleural effusion with passive atelectasis of the majority of the lower lobe. No left lung nodules are identified though evaluation is slightly limited by respiratory motion artifact. Pleura: Moderate right pleural effusion, average internal attenuation 10-25 Hounsfield units. No pleural nodularity or enhancement. No pneumothorax. Heart and mediastinum: Conglomerate right upper and lower paratracheal lymphadenopathy extends into the right hilum at the level of the mainstem bronchus , and measures approximately 5 cm AP by 5.5 cm transverse by 6.1 cm craniocaudal. As described above, the lymphadenopathy encases and obliterates the right upper lobe pulmonary artery and exerts mass effect on the superior vena cava , which is otherwise patent. Associated hilar lymphadenopathy is seen on series 2 image 58 , and measures approximately 2.9 cm transverse by 2.7 cm AP. The lymphadenopathy exerts mild mass effect on the right mainstem bronchus, without significant luminal compromise. No pericardial effusion. Mild cardiomegaly. Soft tissues: Soft tissues are discussed below. Abdomen: Liver: Innumerable predominantly hypoattenuating lesions, some with peripheral hyperattenuation are identified scattered throughout the right and left lobes. Duster Tender lesions include a 3.2 x 1.9 cm lesion in segment 3 as seen on series 5 image 52, a 2.3 x 2.4 cm lesion in segment 7 seen on series 5 image 21 and a 2.3 x 2.3 cm lesion in segment 6 seen on series 5 image 24. No intrahepatic biliary ductal dilatation. The gallbladder is unremarkable. Spleen: No splenomegaly or focal splenic lesion. Pancreas: No focal pancreatic mass or ductal dilatation. Adrenals: No adrenal nodules. Kidneys: 2.2 cm right and 1.6 cm left renal parenchymal simple cysts. No hydronephrosis, calculi, or solid renal mass lesion. Pelvic organs: The urinary bladder is partially collapsed around a Neal catheter and is otherwise unremarkable. Prostate appears normal. GI tract: Postsurgical changes of partial colectomy with primary anastomosis in the pelvis. No evidence of distention or wall thickening. There is no small bowel dilatation to suggest presence of obstruction. Vasculature: There is a extensive calcified and noncalcified atherosclerotic plaque of the abdominal aorta and major branch vessels, without significant stenosis. The common hepatic artery is replaced to the superior mesenteric artery. The portal vein, splenic vein, and a central superior mesenteric vein are patent. Peritoneum/retroperitoneum: No ascites or pneumoperitoneum. Soft tissues: No focal soft tissue abnormalities with the exception of injection granulomata within the subcutaneous fat of the gluteal regions. Lymph nodes : Surgical clip in the right inguinal region. No pelvic sidewall, retroperitoneal, or mesenteric lymphadenopathy. 9 mm likely metastatic right retrocrural lymph node seen on series 5 image 18. Bones: Sclerotic focus in the left iliac wing may represent a bone island. Multilevel degenerative disc changes of the lumbar spine. Acute moderate compression fracture of T10 with approximately 30% loss of anterior height. Acute moderate anterior compression fracture of T8, with approximately 30% loss of anterior height . Acute moderate anterior compression fracture of T5 with approximately 30% loss of anterior height. Mixed lytic and sclerotic appearance of these 3 vertebral bodies. No significant fracture fragment retropulsion or spinal canal compromise. IMPRESSION: No pulmonary embolus to the level of the segmental branch pulmonary arteries. Large primary lung malignancy centered in the apex of the right upper lobe, with metastatic mediastinal and right hilar lymphadenopathy which encases and obliterates the right upper lobe pulmonary artery and exerts mild mass effect on the superior vena cava and right mainstem bronchus, which remain patent. Presumed malignant moderate right pleural effusion with adjacent lower lobe passive atelectasis. Innumerable hepatic metastases. Multilevel thoracic spine compression fractures, likely pathologic, most severe at T5. No fracture fragment retropulsion or spinal canal compromise. Incidental findings include atherosclerotic vascular disease, postsurgical changes of the colon and mediastinum, and moderate pulmonary emphysematous changes. Dictated by: Tony Almaguer M.D. on 04/27/2017 at 13:01 Electronically approved by: Tony Almaguer M.D. on 04/27/2017 at 13:01 Dictated By : TONY ALMAGUER MD 1301 Transcribed By: THAIS on 04/27/17 1301 COPY TO: MAYRA ELIAS MD CT ABDOMEN/PELVIS W [place] [address] Patient Name: TONY ROBLES MR #: [id number] : 1955 Age/Sex: 61/M Req #: [id number] Adm Physician: Ordered by: MAYRA ELIAS MD Report #: [id number] Location: ER Room/Bed: Procedure: [id number] CT/CT ABDOMEN/PELVIS W Exam Date: 04/27/17 Exam Time: 1150 REPORT STATUS: Signed PROCEDURE: CT ABDOMEN AND PELVIS WITH CONTRAST FINDINGS: See impression IMPRESSION: Refer to "CT CHEST WITH CONTRAST" also performed 04/27 for full dictated report. Dictated by: Tony Almaguer M.D. on 04/27 at 13:02 Electronically approved by: Tony Almaguer M.D. on 2017 at 13:02 Dictated By: TONY ALMAGUER MD 1302 Transcribed By: THAIS on 04/27/17 1302 COPY TO: MAYRA ELIAS MD
--- OUTSIDE RECORDS SUMMARY | 2017-04-27 17:22 | XMS REPORT | Clinical Summary ---
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 Status post [...] Taken Blood Pressure 110/63 04/27/2016 11:39 AM LIBRARIAN ASSISTANT Pulse 76 04/27/2016 11:39 AM LIBRARIAN ASSISTANT Temperature 36.2 C (97.1 F) 04/27/2016 11:39 AM LIBRARIAN ASSISTANT Respiratory Rate 14 04/27/2016 11:39 AM LIBRARIAN ASSISTANT Oxygen Saturation 93% 04/27/2016 11:39 AM LIBRARIAN ASSISTANT Inhaled Oxygen - - Concentration Weight 59.3 kg (130 lb 11.2 oz) 04/27/2016 5:19 AM LIBRARIAN ASSISTANT Height - - Body Mass Index 18.75 04/27/2016 5:19 AM LIBRARIAN ASSISTANT Plan of Treatment Health Maintenance Due Date Last Done Comments COLONOSCOPY 07/22/2003 ZOSTER VACCINE 2013 INFLUENZA VACCINE 10/04/2016 Implants Implanted Type Area Shank Pinner Device Expiration Model / Identifier Date Serial / Lot Lead Pace Bautista Mycrdl Unipol Tmpry Cardiovasc N/A: N/A [employer] [place] - 6500F / Streamline - [id number] ular CARDIAC SRGRY / Implanted: 04/21/2016 (Quantity not Implants on file) Lead Pace Bautista Mycrdl Unipol Tmpry Cardiovasc N/A: N/A [employer] Beneq - 6500F / Streamline - [id number] ular CARDIAC SRGRY / Implanted: 04/21/2016 (Quantity not Implants on file) Chamber Sgl Jerry Dry Suct 1wy Vlv Surgical N/A: N/A TELEFLEX S 1100 Adlt Pedi - [id number] Implants; MEDICAL [id number] / Implanted: 04/21/2016 (Quantity not Expanders; / on file) Extenders; Surgical Wires Chamber Sgl Jerry Dry Suct 1wy Vlv Surgical N/A: N/A TELEFLEX S 1100 Adlt Pedi - [id number] Implants; MEDICAL [id number] / Implanted: 04/21/2016 (Quantity not Expanders; / on file) Extenders; Surgical Wires [place] Perph Vasclr Ptfe 1.2x10cm Vascular N/A: N/A BARD PERIPHERAL [id number] / 1.65mm - [id number] Graft VASCULAR / Implanted: 04/21/2016 (Quantity not [id number] on file) Results * POC glucose (04/27/2016 11:41 AM) Only the most recent of 6 results within the time period is included. Component Value Ref Range POC glucose 108 (H) 65 - 99 mg/dL Comment: [facility] Notified RN Meter ID: [id number] Helicopter Specialist: Isra Kamara Specimen Performing Laboratory [facility] DEPARTMENT OF PATHOLOGY AND GENOMIC MEDICINE [address] [place] [address] [id number] * Estimated GFR (04/26/2016 4:37 AM) Component [...] and Americans. Specimen Performing Laboratory Plasma specimen [facility] DEPARTMENT OF PATHOLOGY AND GENOMIC MEDICINE [address] [place] [address] [id number] * Hemoglobin & hematocrit (04/26/2016 4:37 AM) Component Value Ref Range HGB 8.8 (L) 14.0 - 18.0 g/dL HCT 27.3 (L) 41.0 - 51.0 % Specimen Performing Laboratory Blood [facility] DEPARTMENT OF PATHOLOGY AND GENOMIC MEDICINE [address] [place] [id number] * B natriuretic peptide (04/26/2016 4:37 AM) Component Value Ref Range BNP 386 (H) 0 - 100 pg/mL Specimen Performing Laboratory Blood [facility] DEPARTMENT OF PATHOLOGY AND GENOMIC MEDICINE [address] [place] [phone] * Magnesium level (04/26/2016 4:37 AM) Component Value Ref Range Magnesium 2.0 1.6 - 2.4 mg/dL Specimen Performing Laboratory Plasma specimen [facility] DEPARTMENT OF PATHOLOGY AND GENOMIC MEDICINE [address] [place] [id number] Narrative added MG per Ida Gautam RN 04/26/2016 11:23 by [facility] * Basic metabolic panel (04/26/2016 4:37 AM) [...] 10.2 mg/dL Specimen Performing Laboratory Plasma specimen [facility] DEPARTMENT OF PATHOLOGY AND GENOMIC MEDICINE [address] [place] [address] [phone] after 04/26/2016 Insurance Payer Benefit Subscriber ID Type Phone Address Plan / Group [facility] xxxxxxxxx HMO/PPO THCARE CHOICE/CHO ICE +
[2017-04-27 18:00] VITALS: BP 171/95
[2017-04-27 18:29] VITALS: BP 171/95
[2017-04-27 18:50] VITALS: BP 171/95
[2017-04-27] MEDS ORDERED: HALOPERIDOL LACTATE 5 MG/ML VIAL IV PRN (19:15)
[2017-04-27] MEDS ORDERED: ZIPRASIDONE 20 MG VIAL IM PRN (19:30)
[2017-04-27 20:58] VITALS: BP 170/98
[2017-04-27] MEDS: MIRTAZAPINE 15 MG TAB PO SCH (21:00)
[2017-04-27] MEDS: PYRIDOXINE HCL 50 MG TAB PO SCH (21:00)
[2017-04-27 22:19] VITALS: BP 164/95
[2017-04-28] VITALS (72 sets, daily range): BP systolic 87–167; BP diastolic 60–113
[2017-04-28] MEDS: METOPROLOL TARTRATE INJ 1 MG/ML VIAL IV PRN ×2 (02:00→10:40)
[2017-04-28] MEDS ORDERED: ZIPRASIDONE 20 MG VIAL IM PRN (02:00)
[2017-04-28] MEDS: SODIUM CHLORIDE 0.9% 1000ML 1,000 ML IV SCH ×4 (04:27→21:17)
[2017-04-28] MEDS: VANCOMYCIN 1GM/NS 250 ML 250 ML IV SCH ×2 (04:27→15:09)
[2017-04-28 07:13] LABS: BASOPHILS # (AUTO) 0.1 (0.0-0.1); BASOPHILS % 0.4 % (0.0-1.0); EOSINOPHILS % 0.2 % (0.0-6.0); HEMATOCRIT 27.5 % (38.2-49.6); HEMOGLOBIN 8.6 g/dL (14.0-18.0); LYMPHOCYTES # (AUTO) 2.5 (1.0-3.2); LYMPHOCYTES % 14.8 % (18.0-39.1); MEAN CORPUSCULAR HEMOGLOBIN 29.8 pg (28-32); MEAN CORPUSCULAR HGB CONC 31.3 g/dL (31-35); MEAN CORPUSCULAR VOLUME 95.2 fL (81-99); MONOCYTES # (AUTO) 1.6 (0.2-0.8); MONOCYTES % 9.3 % (4.4-11.3); NEUTROPHILS # (AUTO) 10.9 (2.1-6.9); NEUTROPHILS % 65.2 % (38.7-80.0); PLATELET COUNT 161 x10e3/uL (140-360); RED BLOOD COUNT 2.89 x10e6/uL (4.3-5.7); RED CELL DISTRIBUTION WIDTH 15.8 % (11.7-14.4)
[2017-04-28 07:50] LABS: ALANINE AMINOTRANSFERASE 22 IU/L (0-55); ALBUMIN 2.6 g/dL (3.5-5.0); ALBUMIN/GLOBULIN RATIO 0.6 (0.8-2.0); ALKALINE PHOSPHATASE 236 IU/L (40-150); ANION GAP 16.7 mmol/L (8-16); BLOOD UREA NITROGEN 15 mg/dL (7-26); BUN/CREATININE RATIO 18 (6-25); CALCIUM 10.7 mg/dL (8.4-10.2); CARBON DIOXIDE 28 mmol/L (22-29); CHLORIDE 106 mmol/L (98-107); CREATININE, SERUM 0.84 mg/dL (0.72-1.25); EST GLOMERULAR FILTRATION RATE > 60 ML/MIN (60-); GLUCOSE 123 mg/dL (74-118); MAGNESIUM 1.2 MG/DL (1.3-2.1); PHOSPHORUS 3.1 MG/DL (2.3-4.7); SODIUM 148 mmol/L (136-145)
[2017-04-28 07:56] LABS: POTASSIUM 2.7 mmol/L (3.5-5.1)
[2017-04-28 08:00] LABS: INR 1.23; PROTHROMBIN TIME 14.6 seconds (11.9-14.5)
[2017-04-28] MEDS ORDERED: MULTIVITAMINS- 12 INJECTION 10 ML, FOLIC ACID MDV 5 MG, THIAMINE HCL INJ 100 MG in SODI... IV ONE (08:00)
[2017-04-28 08:09] LABS: THYROID STIMULATING HORMONE 0.309 uIU/mL (0.350-4.940)
[2017-04-28] MEDS ORDERED: POTASSIUM CHLORIDE 10MEQ/100ML 400 ML IV ONE (08:30)
[2017-04-28] MEDS ORDERED: POTASSIUM CHLORIDE 100 ML IV SCH (08:45)
[2017-04-28] MEDS: METOPROLOL TARTRATE 25 MG TAB PO SCH ×2 (09:00→17:00)
[2017-04-28 09:22] LABS: ANISOCYTOSIS SLIGHT; BAND NEUTROPHILS % (MANUAL) 3 %; EOSINOPHILS % (MANUAL) 1 % (0-7); LYMPHOCYTES % (MANUAL) 18 % (19-48); METAMYELOCYTES % (MANUAL) 1 % (0-0); MONOCYTES % (MANUAL) 7 % (3.4-9.0); MYELOCYTES % (MANUAL) 1 % (0-0); NEUTROPHILS % (MANUAL) 69 % (40-74); NUCLEATED RED BLOOD CELLS 4; PLATELET ESTIMATE ADEQUATE; PLATELET MORPHOLOGY COMMENT NORMAL; RBC MORPHOLOGY COMMENT ABNORMAL
[2017-04-28] MEDS ORDERED: MEROPENEM 1 GM VIAL IV SCH (12:30)
[2017-04-28] MEDS ORDERED: MEROPENEM 1GRAM 1 GM in SODIUM CHLORIDE 0.9% 100 ML 100 ML IV SCH (12:30)
--- NOTE | 2017-04-28 12:46 | Diagnostic Imaging Report ---
PROCEDURE: A single AP view of the chest. COMPARISON: Chest 04/27/2017. CT chest 04/27/2017 INDICATIONS: ETT PLACEMENT FINDINGS: Lines/tubes: Endotracheal catheter is present with the tip projecting over the expected region of the trachea, positioned 5 cm from the lacie. Lungs: Stable consolidative opacities of the right upper lobe. Right lower lobe atelectasis. The left lung is clear. Pleura: Moderate to large right pleural effusion. No pneumothorax. Heart and mediastinum: The heart and the mediastinum are unremarkable. Bones: No acute bony abnormality. Median sternotomy wires. IMPRESSION: Right upper lobe airspace opacity consistent with pneumonia. Right pleural effusion. Dictated by: Tao Kim M.D. on 04/28/2017 at 12:46 Electronically approved by: Tao Kim M.D. on 04/28/2017 at 12:46
--- NOTE | 2017-04-28 13:14 | Consultation ---
DATE OF CONSULTATION: April 28, 2017 PULMONARY CONSULTATION REASON FOR CONSULTATION: Abnormal CT of the chest. HPI: Mr. Juan is well known to me from my office visits. He has right upper lobe lung mass and was seen in my office for workup. The patient was referred for CT-guided biopsy of the right upper lobe lung mass, which turned out to be negative and showed possible evidence of infection. However, he had a right central mass as well, and he was scheduled to do a bronchoscopy with EBUS today at [facility]. The patient became more confused and obtunded. He has been on pain medication because of his chronic back pain. The patient has been a smoker for 40-plus years. He is currently confused and unable to give me any history. The patient's mom is at bedside. He was given Narcan in the emergency room and mental status improved. PAST MEDICAL HISTORY: Hypertension, chronic pain, depression. The patient also has a history of rheumatoid arthritis, and he is on Orencia. He has been treated for latent tuberculosis with isoniazid. His chest x-ray in October 2016 was completely negative. REVIEW OF SYSTEMS: Unable to elicit a detailed review of systems as the patient is confused. FAMILY AND SOCIAL HISTORY: Smoker. History of alcohol use. Smoker for 40-plus years. PHYSICAL EXAMINATION VITAL SIGNS: Temperature 98.6, pulse 115, blood pressure 158/96, respiratory rate 30, O2 sat 98% on 4 L. SKIN: Warm and dry. HEENT: Head is atraumatic and normocephalic. NECK: Supple. No JVD. CHEST: Reduced air entry on the right side but otherwise clear on the left. HEART: S1 and S2 audible. Tachycardic to 120s. ABDOMEN: Soft, nontender and nondistended. EXTREMITIES: No clubbing, cyanosis or edema. NEUROLOGIC: Confused. LABS: White count 16,000, hemoglobin 8.6, platelets 161. Chemistry: Sodium 148, potassium 2.7. Calcium has been 10.7. It was 12.3 initially. Alk phos 236, albumin 2.6. TSH 0.309. Blood gas yesterday 7.49, pCO2 44, pO2 86. It was 97%. Unsure on what amount of oxygen this ABG was done. ASSESSMENT: Johnathon Juan is a 61-year-old male with a dense right upper lobe mass and a right mediastinal mass versus matted lymphadenopathy. High likelihood of malignancy. However, the initial CT-guided biopsy was completely negative. The patient also has a history of rheumatoid arthritis and is on treatment for latent tuberculosis. His chest x-ray, which I have reviewed in my office, was completely normal in October 2016. Between October and March, he developed symptoms of shortness of breath and back pain. CT of the chest, abdomen and pelvis showed evidence of right upper lobe lung mass and a paratracheal mass along with liver lesion. He has hypercalcemia now as well. PLAN 1. Supportive care with IV hydration. 2. ID consult. Continue the patient on IV vancomycin. I will add meropenem as the patient is allergic to penicillin. 3. Transfer the patient to the ICU. The patient possibly will need mechanical ventilator and intubation as the patient is tachypneic and tachycardic. This was discussed with the patient's mother at bedside. Critical care time spent 50 minutes. Job#: [id number]
--- NOTE | 2017-04-28 13:36 | Diagnostic Imaging Report ---
EXAMINATION: CHEST SINGLE (PORTABLE) INDICATION: \S\ETT placement verification \[id number] \S\1235 \S\Y COMPARISON: Same day at 1218 hours FINDINGS: AP view The lateral left costophrenic angle is excluded from the image. TUBES and LINES: Stable endotracheal tube with tip approximately 6.1 cm above lacie. LUNGS and PLEURA: Lungs are well inflated. Mild interstitial edema. Unchanged right upper lobe airspace opacity. Small to moderate size right pleural effusion. No visible pneumothorax. HEART AND MEDIASTINUM: The cardiomediastinal silhouette is enlarged. BONES AND SOFT TISSUES: No acute osseous lesion. Soft tissues are unremarkable. UPPER ABDOMEN: No free air under the diaphragm. IMPRESSION: Endotracheal tube in place with tip approximately 6.1 cm above lacie. Unchanged mild pulmonary edema and vascular congestion. Unchanged right upper lobe opacification and small to moderate size right pleural effusion. Signed by: Dr. Yariel Phipps MD on 04/28/2017 1:32 PM
[2017-04-28 13:47] LABS: ABG PH 7.41 (7.31-7.41)
[2017-04-28 13:48] LABS: ABG HCO3 32 mmol/L (23-28); ABG PCO2 50 mmHg (41-51); ABG PO2 110 mmHg (80-105)
--- NOTE | 2017-04-28 15:10 | Diagnostic Imaging Report ---
PROCEDURE: A single AP view of the chest. COMPARISON: Portable chest 04/28/2017. INDICATIONS: NG/CENTRAL LINE PLACMENT FINDINGS: Lines/tubes: Right internal jugular temporary central venous catheter with tip projecting over the expected region of the superior vena cava. Endotracheal catheter is present with the tip projecting over the expected region of the trachea, positioned 4 cm from the lacie. Enteric feeding catheter is present with the tip projecting over the expected region of the gastric body. Lungs: Consolidative opacity is present in the right upper lobe. Right lung base atelectasis. Pleura: Moderate right pleural effusion. No pneumothorax. Heart and mediastinum: The heart and the mediastinum are unremarkable. Bones: No acute bony abnormality. Median sternotomy wires. IMPRESSION: Consolidative opacity in the right upper lobe. Moderate right pleural effusion. Dictated by: Tao Kim M.D. on 04/28/2017 at 15:10 Electronically approved by: Tao Kim M.D. on 04/28/2017 at 15:10
[2017-04-28] MEDS ORDERED: SUCCINYLCHOLINE 200 MG/10 ML SYR ONE (15:48)
[2017-04-28] MEDS ORDERED: MIDAZOLAM HCL 2 MG/2 ML VIAL ONE (15:48)
[2017-04-28] MEDS ORDERED: ETOMIDATE 40 MG/ 20ML VIAL IV ONE (15:48)
[2017-04-28] MEDS ORDERED: PIPER-TAZ 3.375 GM 50 ML IV SCH ×2 (18:00→21:00)
--- NOTE | 2017-04-28 18:44 | Consultation ---
DATE OF CONSULTATION: April 28, 2017 REASON FOR CONSULTATION: Lung mass, pneumonia, recommendation for antibiotic. HISTORY OF PRESENT ILLNESS: This is a 61-year-old white male. According to his , he has been sick since [place], so almost like 2-1/2 months, with shortness of breath and cough. Originally, he went to the urgent care center. He was referred to the hospital where he was admitted and given antibiotic. Apparently, on my discussion with Dr. Monteiro, the refractory specialist, a few months ago his chest x-ray was normal, but when they saw him back in March, he had a lung mass. He underwent a biopsy, which was done at [place], but the lung biopsy was negative for AFB, granuloma or malignancy. The patient was recently started on INH by his cartography teacher for positive TB QuantiFERON. The patient apparently has history of rheumatoid arthritis, and he was started on Humira and then on Orencia recently. The patient apparently was here for a few days in March for shortness of breath and pneumonia and discharged home. He was there for a month and came back again with shortness of breath. He was admitted again for antibiotic. At that time, the biopsy was done, which was not conclusive. He was discharged home. Now the patient is coming back with feeling weak and tired. He is intubated. Apparently when he was intubated, there were pus and sputum, but also the lung mass remains. Infectious disease was consulted regarding the lung mass and the history of positive latent TB. This patient is currently intubated and sedated, and history was taken mainly from the , the chart and discussed with the attending and discussed Dr. Monteiro. He does have history of alcoholism, hypertension, testosterone insufficiency, chronic pain syndrome, depression and anxiety, DVT before, rheumatoid arthritis and he is on Orencia now, hypernatremia and recently a lung mass. He also has a history of heavy smoking, 1 pack a day for 40 years, as well as drinking. He also was diagnosed with multilevel lumbar fracture recently, although he has history of lumbar laminectomy with fusion to the lumbar spine. SOCIAL HISTORY: Smoking 1 pack a day and heavy alcoholism. Apparently he quit in the last couple of months. REVIEW OF SYSTEMS: Besides the weakness and the back pain, which the conveyed to me, there is no fever or chills, nausea or vomiting. There is some shortness of breath and some dry cough. PHYSICAL EXAMINATION GENERAL: He is currently sedated and intubated. VITALS: Stable. Heart rate 96. Blood pressure 109/68. HEENT: Normocephalic. NECK: Supple. CHEST: A few crackles on the right. COR: S1 and S2. No murmur. ABDOMEN: Soft. Bowel sounds are present. EXTREMITIES: No edema. SKIN: No rash. LABS: White count 16.75, hemoglobin 8.6, hematocrit 27. Sodium 128, potassium 2.7, creatinine 0.84. MEDICATIONS: Patient is currently on Lopressor, potassium supplement, morphine, vancomycin, Geodon, B6, and meropenem. IMPRESSION 1. I think the patient has a lung mass, probably malignant. I am concerned about postobstructive pneumonia. Since he has been in the hospital twice in the last couple of months, it is healthcare-associated pneumonia. I agree with choice of vancomycin and Zosyn. I would suggest to repeat the biopsy because I am really suspicious he has malignancy. If it is still inconclusive, may want to consider open lung biopsy. 2. Respiratory failure. 3. Hypokalemia. 4. History of rheumatoid arthritis. 5. History of latent tuberculosis. Can withhold treatment for the time being because we have other issues to deal with at the present time. 6. I will still obtain a biopsy and send for AFB and fungal culture and sensitivity. 7. We will follow with you. Job#: [id number]
[2017-04-28] MEDS: PYRIDOXINE HCL 50 MG TAB PO SCH (19:55)
[2017-04-28] MEDS: MIRTAZAPINE 15 MG TAB PO SCH (19:55)
[2017-04-28] MEDS: MEROPENEM 500 MG VIAL IV SCH (21:17)
[2017-04-28] MEDS: FENTANYL CITRATE INJ 2,000 MCG in SODIUM CHLORIDE 0.9% 250ML 210 ML IV PRN (21:17)
[2017-04-28] MEDS: MIDAZOLAM HCL 25 MG in SODIUM CHLORIDE 0.9% 50ML 45 ML IV PRN (21:17)
[2017-04-29] VITALS (57 sets, daily range): BP systolic 91–116; BP diastolic 51–71
[2017-04-29] MEDS ORDERED: MEROPENEM 500MG 500 MG in SODIUM CHLORIDE 0.9% 50ML 50 ML IV SCH ×2
[2017-04-29] MEDS: MEROPENEM 500 MG VIAL IV SCH ×4 (02:14→20:07)
[2017-04-29] MEDS: VANCOMYCIN 1GM/NS 250 ML 250 ML IV SCH ×2 (02:14→14:36)
[2017-04-29] MEDS: SODIUM CHLORIDE 0.9% 1000ML 1,000 ML IV SCH ×3 (02:15→21:09)
[2017-04-29] MEDS: MIDAZOLAM HCL 25 MG in SODIUM CHLORIDE 0.9% 50ML 45 ML IV PRN ×5 (03:27→23:29)
[2017-04-29 06:13] LABS: BASOPHILS % 0.4 % (0.0-1.0); EOSINOPHILS % 0.4 % (0.0-6.0); HEMATOCRIT 24.4 % (38.2-49.6); LYMPHOCYTES # (AUTO) 1.8 (1.0-3.2); LYMPHOCYTES % 16.6 % (18.0-39.1); MEAN CORPUSCULAR HEMOGLOBIN 30.1 pg (28-32); MEAN CORPUSCULAR HGB CONC 30.3 g/dL (31-35); MEAN CORPUSCULAR VOLUME 99.2 fL (81-99); MONOCYTES # (AUTO) 1.1 (0.2-0.8); MONOCYTES % 9.8 % (4.4-11.3); NEUTROPHILS # (AUTO) 7.2 (2.1-6.9); PLATELET COUNT 133 x10e3/uL (140-360); RED BLOOD COUNT 2.46 x10e6/uL (4.3-5.7); RED CELL DISTRIBUTION WIDTH 16.4 % (11.7-14.4)
[2017-04-29 06:14] LABS: HEMOGLOBIN 7.4 g/dL (14.0-18.0)
[2017-04-29] MEDS ORDERED: SODIUM CHLORIDE 0.9% 250ML 250 ML IV ONE (06:30)
[2017-04-29 06:32] LABS: ALANINE AMINOTRANSFERASE 21 IU/L (0-55); ALBUMIN 2.3 g/dL (3.5-5.0); ALBUMIN/GLOBULIN RATIO 0.6 (0.8-2.0); ALKALINE PHOSPHATASE 230 IU/L (40-150); ANION GAP 11.3 mmol/L (8-16); BLOOD UREA NITROGEN 18 mg/dL (7-26); BUN/CREATININE RATIO 22 (6-25); CALCIUM 10.2 mg/dL (8.4-10.2); CARBON DIOXIDE 30 mmol/L (22-29); CHLORIDE 114 mmol/L (98-107); CREATININE, SERUM 0.82 mg/dL (0.72-1.25); EST GLOMERULAR FILTRATION RATE > 60 ML/MIN (60-); GLUCOSE 106 mg/dL (74-118); PHOSPHORUS 2.9 MG/DL (2.3-4.7); POTASSIUM 3.3 mmol/L (3.5-5.1); SODIUM 152 mmol/L (136-145)
[2017-04-29] MEDS ORDERED: SODIUM CHLORIDE 0.9% 250ML 250 ML ONE (06:51)
[2017-04-29] MEDS: METOPROLOL TARTRATE 25 MG TAB PO SCH ×2 (09:00→16:53)
[2017-04-29 09:33] LABS: BAND NEUTROPHILS % (MANUAL) 5 %; LYMPHOCYTES % (MANUAL) 8 % (19-48); MONOCYTES % (MANUAL) 3 % (3.4-9.0); NEUTROPHILS % (MANUAL) 84 % (40-74); PLATELET ESTIMATE SLIGHTLY DECREASED; PLATELET MORPHOLOGY COMMENT NORMAL; RBC MORPHOLOGY COMMENT NORMAL
[2017-04-29 11:03] LABS: % IRON SATURATION 16 % (15-50); IRON 45 ug/dL (65-175); TOTAL IRON BINDING CAPACITY 281 ug/dL (261-478); TRANSFERRIN 201 mg/dL (174-364)
[2017-04-29] MEDS: FENTANYL CITRATE INJ 2,000 MCG in SODIUM CHLORIDE 0.9% 250ML 210 ML IV PRN ×2 (11:15→20:08)
[2017-04-29] MEDS ORDERED: POTASSIUM CHLORIDE IV ONE (11:30)
[2017-04-29] MEDS: PYRIDOXINE HCL 50 MG TAB PO SCH (19:01)
[2017-04-29] MEDS: MIRTAZAPINE 15 MG TAB PO SCH (19:02)
[2017-04-30] VITALS (95 sets, daily range): BP systolic 87–121; BP diastolic 52–75
[2017-04-30] MEDS: VANCOMYCIN 1GM/NS 250 ML 250 ML IV SCH ×2 (03:06→17:45)
[2017-04-30] MEDS: MEROPENEM 500 MG VIAL IV SCH ×4 (03:06→20:10)
[2017-04-30] MEDS: SODIUM CHLORIDE 0.9% 1000ML 1,000 ML IV SCH (05:14)
[2017-04-30 06:27] LABS: BASOPHILS % 0.4 % (0.0-1.0); EOSINOPHILS # (AUTO) 0.1 (0.0-0.4); EOSINOPHILS % 0.9 % (0.0-6.0); HEMATOCRIT 27.1 % (38.2-49.6); LYMPHOCYTES # (AUTO) 2.3 (1.0-3.2); LYMPHOCYTES % 23.1 % (18.0-39.1); MEAN CORPUSCULAR HEMOGLOBIN 29.6 pg (28-32); MEAN CORPUSCULAR HGB CONC 29.5 g/dL (31-35); MEAN CORPUSCULAR VOLUME 100.4 fL (81-99); MONOCYTES % 9.7 % (4.4-11.3); NEUTROPHILS # (AUTO) 5.8 (2.1-6.9); NEUTROPHILS % 58.1 % (38.7-80.0); PLATELET COUNT 115 x10e3/uL (140-360); RED CELL DISTRIBUTION WIDTH 17.8 % (11.7-14.4)
[2017-04-30 06:48] LABS: ALANINE AMINOTRANSFERASE 41 IU/L (0-55); ALBUMIN 2.2 g/dL (3.5-5.0); ALBUMIN/GLOBULIN RATIO 0.6 (0.8-2.0); ALKALINE PHOSPHATASE 263 IU/L (40-150); BLOOD UREA NITROGEN 20 mg/dL (7-26); BUN/CREATININE RATIO 23 (6-25); CALCIUM 10.2 mg/dL (8.4-10.2); CARBON DIOXIDE 30 mmol/L (22-29); CHLORIDE 118 mmol/L (98-107); CREATININE, SERUM 0.87 mg/dL (0.72-1.25); EST GLOMERULAR FILTRATION RATE > 60 ML/MIN (60-); GLUCOSE 153 mg/dL (74-118); SODIUM 154 mmol/L (136-145)
[2017-04-30] MEDS: FENTANYL CITRATE INJ 2,000 MCG in SODIUM CHLORIDE 0.9% 250ML 210 ML IV PRN (07:07)
[2017-04-30] MEDS: MIDAZOLAM HCL 25 MG in SODIUM CHLORIDE 0.9% 50ML 45 ML IV PRN (07:07)
[2017-04-30] MEDS: METOPROLOL TARTRATE 25 MG TAB PO SCH ×2 (09:00→17:00)
--- NOTE | 2017-04-30 11:06 | Diagnostic Imaging Report ---
EXAMINATION: CHEST SINGLE (PORTABLE) 04/30/2017 9:15 AM COMPARISON: 04/28/2017 INDICATION: Pneumonia, lung cancer DISCUSSION: LINES: Right internal jugular central venous catheter has its tip near the cavoatrial junction. Endotracheal tube has its tip about 5 cm above the lacie. NG/NG tube courses below the diaphragm with the tip not visualized. LUNGS: Right apical opacity, unchanged. Right basilar atelectasis. The left lung appears clear. PLEURA: Layering right pleural effusion, unchanged. No pneumothorax HEART AND MEDIASTINUM: The cardiomediastinal silhouette is unchanged. BONES AND SOFT TISSUES: No acute osseous lesion. The soft tissues are normal. IMPRESSION: 1. Endotracheal tube tip is difficult to visualize due to overlying NG tube. The tip appears to be about 5 cm above the lacie. 2. Right apical opacity with right basilar atelectasis and layering pleural effusion, unchanged. Nathen Cooper MD Signed by: Dr. Nathen Cooper M.D. on 04/30/2017 11:02 AM
[2017-04-30] MEDS ORDERED: DEXTROSE 5% 1,000 ML IV ONE (12:00)
[2017-04-30] MEDS ORDERED: MAGNESIUM HYDROXIDE 30 ML UDC PO PRN (12:00)
[2017-04-30 15:08] LABS: BAND NEUTROPHILS % (MANUAL) 2 %; LYMPHOCYTES % (MANUAL) 21 % (19-48); METAMYELOCYTES % (MANUAL) 3 % (0-0); MONOCYTES % (MANUAL) 4 % (3.4-9.0); MYELOCYTES % (MANUAL) 4 % (0-0); NEUTROPHILS % (MANUAL) 66 % (40-74); NUCLEATED RED BLOOD CELLS 3
[2017-04-30 15:10] LABS: PLATELET ESTIMATE SLIGHTLY DECREASED; PLATELET MORPHOLOGY COMMENT NORMAL; POLYCHROMASIA FEW; RBC MORPHOLOGY COMMENT ABNORMAL
[2017-04-30 15:11] LABS: ANISOCYTOSIS SLIGHT; POIKILOCYTOSIS SLIGHT
[2017-04-30] MEDS: DOCUSATE SODIUM LIQD 100 MG/10 ML UDC NG SCH (17:45)
[2017-04-30] MEDS: MIRTAZAPINE 15 MG TAB PO SCH (19:39)
[2017-04-30] MEDS: PYRIDOXINE HCL 50 MG TAB PO SCH (19:40)
[2017-05-01] VITALS (104 sets, daily range): BP systolic 85–131; BP diastolic 49–73
[2017-05-01] MEDS: MIDAZOLAM HCL 25 MG in SODIUM CHLORIDE 0.9% 50ML 45 ML IV PRN ×4 (00:48→15:00)
[2017-05-01] MEDS: MEROPENEM 500 MG VIAL IV SCH ×5 (02:17→20:34)
[2017-05-01] MEDS: VANCOMYCIN 1GM/NS 250 ML 250 ML IV SCH ×2 (02:17→15:34)
[2017-05-01] MEDS: FENTANYL CITRATE INJ 2,000 MCG in SODIUM CHLORIDE 0.9% 250ML 210 ML IV PRN (04:19)
[2017-05-01 06:03] LABS: BASOPHILS % 0.3 % (0.0-1.0); EOSINOPHILS # (AUTO) 0.1 (0.0-0.4); HEMATOCRIT 26.2 % (38.2-49.6); HEMOGLOBIN 7.9 g/dL (14.0-18.0); LYMPHOCYTES # (AUTO) 1.8 (1.0-3.2); LYMPHOCYTES % 20.7 % (18.0-39.1); MEAN CORPUSCULAR HEMOGLOBIN 30.2 pg (28-32); MEAN CORPUSCULAR HGB CONC 30.2 g/dL (31-35); MONOCYTES # (AUTO) 0.8 (0.2-0.8); MONOCYTES % 9.1 % (4.4-11.3); NEUTROPHILS # (AUTO) 5.3 (2.1-6.9); NEUTROPHILS % 61.6 % (38.7-80.0); PLATELET COUNT 112 x10e3/uL (140-360); RED BLOOD COUNT 2.62 x10e6/uL (4.3-5.7); RED CELL DISTRIBUTION WIDTH 17.2 % (11.7-14.4)
[2017-05-01 06:15] LABS: INR 1.33; PARTIAL THROMBOPLASTIN TIME 35.7 seconds (23.8-35.5); PROTHROMBIN TIME 15.5 seconds (11.9-14.5)
[2017-05-01 06:24] LABS: ANION GAP 11.7 mmol/L (8-16); BLOOD UREA NITROGEN 18 mg/dL (7-26); BUN/CREATININE RATIO 22 (6-25); CALCIUM 10.2 mg/dL (8.4-10.2); CARBON DIOXIDE 30 mmol/L (22-29); CHLORIDE 113 mmol/L (98-107); CREATININE, SERUM 0.81 mg/dL (0.72-1.25); EST GLOMERULAR FILTRATION RATE > 60 ML/MIN (60-); GLUCOSE 169 mg/dL (74-118); POTASSIUM 3.7 mmol/L (3.5-5.1); SODIUM 151 mmol/L (136-145)
--- NOTE | 2017-05-01 06:37 | Diagnostic Imaging Report ---
EXAMINATION: CHEST SINGLE (PORTABLE) 05/01/2017 7:00 AM COMPARISON: 04/30/2017 and 04/28/2017 INDICATION: Shortness of breath DISCUSSION: LINES: Right internal jugular central venous catheter has its tip near the cavoatrial junction. Endotracheal tube has its tip about 3.4 cm above the lacie. NG/NG tube courses below the diaphragm with the tip not visualized. LUNGS: Right pleural-based apical opacity, unchanged. Right basilar atelectasis. The left lung appears clear. PLEURA: Layering right pleural effusion, unchanged. No pneumothorax HEART AND MEDIASTINUM: The cardiomediastinal silhouette is unchanged. BONES AND SOFT TISSUES: No acute osseous lesion. The soft tissues are normal. IMPRESSION: 1. Tubes and lines are in good position. 2. Otherwise, stable examination with right pleural effusion and right apical soft tissue opacity/pleural based. Signed by: Dr. Atul Pisano M.D. on 05/01/2017 6:33 AM
[2017-05-01] MEDS ORDERED: ACETAMINOPHEN 1000 MG/100 ML IV PRN (07:00)
[2017-05-01] MEDS ORDERED: SODIUM CHLORIDE 0.9% 250ML 250 ML IV ONE (07:00)
[2017-05-01 07:34] LABS: BAND NEUTROPHILS % (MANUAL) 1 %; EOSINOPHILS % (MANUAL) 3 % (0-7); LYMPHOCYTES % (MANUAL) 23 % (19-48); METAMYELOCYTES % (MANUAL) 3 % (0-0); MONOCYTES % (MANUAL) 12 % (3.4-9.0); MYELOCYTES % (MANUAL) 2 % (0-0); NEUTROPHILS % (MANUAL) 55 % (40-74); NUCLEATED RED BLOOD CELLS 2
[2017-05-01 07:35] LABS: ANISOCYTOSIS SLIGHT; HYPOCHROMASIA MODERATE; PLATELET ESTIMATE SLIGHTLY DECREASED; PLATELET MORPHOLOGY COMMENT NORMAL; RBC MORPHOLOGY COMMENT NORMAL
--- NOTE | 2017-05-01 07:56 | Diagnostic Imaging Report ---
PROCEDURE:ULTRASOUND GUIDANCE FOR VASCULAR ACCESS COMPARISON:None. INDICATIONS:Need for central venous access. FINDINGS:The right internal jugular vein is noted to be patent. Ultrasound guidance was utilized for access for temporary central venous catheter placement. CONCLUSION:Patent right internal jugular vein. Successful ultrasound guidance for right internal jugular temporary central venous catheter placement. Dictated by: Tao Kim M.D. on 05/01/2017 at 7:56 Electronically approved by: Tao Kim M.D. on 05/01/2017 at 7:56
--- NOTE | 2017-05-01 08:52 | Diagnostic Imaging Report ---
PROCEDURE:NON-TUNNELLED CVC CATH PLACMNT COMPARISON:None. INDICATIONS: Need for central venous access. COMPLICATIONS: None. MEDICATIONS: None. BLOOD LOSS: Less than 2 cc. PROCEDURE: Focused sonographic evaluation of the right neck demonstrated a patent compressible right internal jugular vein. A safe approach was determined. The procedure was performed at the bedside in the intensive care unit. The right neck was prepped and draped in the usual sterile fashion. 1% lidocaine was infused into the subcutaneous tissues for local anesthesia. Utilizing direct ultrasound guidance, a 21 gauge needle was advanced into the right internal jugular vein. A 0.018 inch wire was advanced centrally. An access sheath was placed over the wire to secure the vascular access. A 0.035 inch wire was exchanged. Single dilation was performed over the wire. A triple lumen temporary central venous catheter was advanced over the wire. The wire was removed. The catheter ports demonstrated proper function with aspiration and flush of sterile saline. The catheter ports were flushed with sterile saline. The catheter was secured to the skin with 3-0 Ethilon suture. A sterile dressing was applied. The patient tolerated the procedure well. There were no immediate complications. The patient remained in the intensive care unit in stable unchanged condition. CONCLUSION: Successful placement of a right internal jugular temporary central venous catheter utilizing ultrasound guidance. Dictated by: Tao Kim M.D. on 05/01/2017 at 8:51 Electronically approved by: Tao Kim M.D. on 05/01/2017 at 8:51
[2017-05-01] MEDS: DOCUSATE SODIUM LIQD 100 MG/10 ML UDC NG SCH ×2 (09:00→17:00)
[2017-05-01] MEDS: METOPROLOL TARTRATE 25 MG TAB PO SCH ×2 (09:00→17:00)
[2017-05-01] MEDS ORDERED: LIDOCAINE HCL 4% 50 ML BTL ONE (09:23)
[2017-05-01] MEDS ORDERED: ACETYLCYSTEINE 200 MG/ML 4ML VIAL ONE (09:23)
[2017-05-01] MEDS ORDERED: OXYMETAZOLINE HCL 0.05% NAS 1 SPRAY BTL ONE (09:23)
[2017-05-01] MEDS ORDERED: LIDOCAINE JELLY 2% 10ML URO-JET ONE (09:23)
--- NOTE | 2017-05-01 10:25 | Operative Report ---
DATE OF PROCEDURE: May 01, 2017 The patient with a mass lesions, liver and lung. Initially, scheduled for EBUS biopsy, which is not available at [facility]. Bronchoscopy was performed to rule out occult endobronchial lesions. He was bronchoscoped under MAC anesthesia provided by Dr. Ortiz. Endotracheal tube was seen to be approximately 1.5 cm above the lacie. Moderate amount of thick white secretions, but no obstructing lesions were seen. Particularly, there were no lesions in the right upper or right lower lobe bronchi. Biopsies were not obtained. Washings were obtained. Anticipate the patient will undergo liver biopsy under ultrasound guidance and thoracentesis. This was discussed with interventional radiology. The patient tolerated the procedure well. No untoward events. No blood loss. He remains in the ICU where the procedure was performed. Continue on assist control ventilation. Job#: [id number] KATHIA
[2017-05-01] MEDS: FUROSEMIDE INJ 10 MG/ML 2 ML VIAL IV PRN ×2 (10:32→19:55)
[2017-05-01 13:45] LABS: BODY FLUID TYPE PLEURAL
--- NOTE | 2017-05-01 13:54 | Diagnostic Imaging Report ---
PROCEDURE: ULTRASOUND GUIDED THORACENTESIS COMPARISON: None. INDICATIONS:Pleural Effusion FINDINGS: After informed consent was obtained, the patient was placed in the sitting position and preliminary ultrasound of the posterior chest identified a safe route into the right pleural effusion. The overlying skin was prepped and draped in usual sterile fashion. Lidocaine 1% was used for local anesthesia. Under ultrasound guidance, a centesis needle was advanced into the pleural fluid and 1400 cc were aspirated. The patient tolerated the procedure well and there were no immediate post-procedural complications. A post-thoracentesis chest radiograph will be obtained. CONCLUSION: Uncomplicated ultrasound-guided right thoracentesis with removal of 1400 cc. Dictated by: Tao Kim M.D. on 05/01/2017 at 13:53 Electronically approved by: Tao Kim M.D. on 05/01/2017 at 13:53
--- NOTE | 2017-05-01 14:15 | Diagnostic Imaging Report ---
PROCEDURE: CHEST XRAY POST PROCEDURE COMPARISON: None. INDICATIONS: POST THORACENTESIS FINDINGS: Lines: No interval change in proper position of the right internal jugular temporary central venous catheter, endotracheal catheter, and enteric feeding catheter. LUNGS: Stable masslike consolidation in the right upper lobe.Left lung base atelectasis. PLEURA: Decreased the right pleural effusion. No pneumothorax. HEART \T\ MEDIASTINUM: The heart is within normal size-limits. BONES \T\ SOFT TISSUES: No acute findings. Degenerative changes of the thoracic spine. Median sternotomy wires. CONCLUSION: Decrease of the right pleural effusion status post right thoracentesis. No pneumothorax. Dictated by: Tao Kim M.D. on 05/01/2017 at 14:15 Electronically approved by: Tao Kim M.D. on 05/01/2017 at 14:15
[2017-05-01 15:45] LABS: BODY FLUID APPEARANCE SL.CLOUDY; BODY FLUID COLOR YELLOW
[2017-05-01 16:12] LABS: RBC,BODY FLUID 30 cells/uL; WBC,BODY FLUID 30 cells/uL
[2017-05-01] MEDS ORDERED: SODIUM CHLORIDE 0.9% 250ML 250 ML ONE (17:25)
[2017-05-01 17:35] LABS: LYMPHOCYTES,BODY FLUID 83 %; MONO/MACROPHG,BODY FLUID 7 %; NEUTROPHILS,BODY FLUID 10 %
[2017-05-01] MEDS ORDERED: ROCURONIUM BROMIDE 10 MG/ML 5ML VIAL ONE (19:26)
[2017-05-01] MEDS ORDERED: ALTEPLASE RECOMBINANT 2 MG/2 ML VIAL IV PRN (19:45)
[2017-05-01] MEDS: MIRTAZAPINE 15 MG TAB PO SCH (20:34)
[2017-05-01] MEDS: PYRIDOXINE HCL 50 MG TAB PO SCH (20:34)
[2017-05-02] VITALS (91 sets, daily range): BP systolic 90–145; BP diastolic 52–78
[2017-05-02] MEDS: MEROPENEM 500 MG VIAL IV SCH ×3 (02:59→20:41)
[2017-05-02] MEDS: VANCOMYCIN 1GM/NS 250 ML 250 ML IV SCH ×2 (02:59→15:36)
[2017-05-02] MEDS: FENTANYL CITRATE INJ 2,000 MCG in SODIUM CHLORIDE 0.9% 250ML 210 ML IV PRN ×2 (04:17→17:02)
[2017-05-02] MEDS: MIDAZOLAM HCL 25 MG in SODIUM CHLORIDE 0.9% 50ML 45 ML IV PRN ×3 (04:23→18:31)
[2017-05-02 05:58] LABS: BASOPHILS % 0.5 % (0.0-1.0); EOSINOPHILS # (AUTO) 0.2 (0.0-0.4); EOSINOPHILS % 2.1 % (0.0-6.0); HEMATOCRIT 31.7 % (38.2-49.6); HEMOGLOBIN 9.9 g/dL (14.0-18.0); LYMPHOCYTES # (AUTO) 2.2 (1.0-3.2); LYMPHOCYTES % 25.3 % (18.0-39.1); MEAN CORPUSCULAR HGB CONC 31.2 g/dL (31-35); MEAN CORPUSCULAR VOLUME 96.1 fL (81-99); MONOCYTES # (AUTO) 0.8 (0.2-0.8); MONOCYTES % 9.4 % (4.4-11.3); NEUTROPHILS # (AUTO) 4.8 (2.1-6.9); NEUTROPHILS % 54.9 % (38.7-80.0); PLATELET COUNT 107 x10e3/uL (140-360); RED CELL DISTRIBUTION WIDTH 17.3 % (11.7-14.4)
[2017-05-02 06:22] LABS: ALANINE AMINOTRANSFERASE 68 IU/L (0-55); ALBUMIN 2.1 g/dL (3.5-5.0); ALBUMIN/GLOBULIN RATIO 0.6 (0.8-2.0); ALKALINE PHOSPHATASE 240 IU/L (40-150); ANION GAP 11.6 mmol/L (8-16); BLOOD UREA NITROGEN 22 mg/dL (7-26); BUN/CREATININE RATIO 25 (6-25); CARBON DIOXIDE 34 mmol/L (22-29); CHLORIDE 109 mmol/L (98-107); CREATININE, SERUM 0.88 mg/dL (0.72-1.25); EST GLOMERULAR FILTRATION RATE > 60 ML/MIN (60-); GLUCOSE 138 mg/dL (74-118); POTASSIUM 3.6 mmol/L (3.5-5.1); SODIUM 151 mmol/L (136-145)
--- NOTE | 2017-05-02 07:04 | Diagnostic Imaging Report ---
PROCEDURE: CHEST SINGLE (PORTABLE) COMPARISON: Chest x-ray 05/02/2017. INDICATIONS: PT INTUBATED FINDINGS: Stable masslike consolidation in the right upper lobe. No sizable pleural effusion. Left hemithorax is clear. Stable cardiomediastinal contour with postsurgical changes in the mediastinum. Pulmonary venous congestion. Endotracheal tube, enteric tube, and right internal jugular central venous catheter are unchanged in position. Skeletal structures are intact. CONCLUSION: Stable position of support lines and tubes. Unchanged masslike consolidation in the right upper lobe, postsurgical mediastinum, and pulmonary venous congestion. Dictated by: Johnathon Garcia M.D. on 05/02/2017 at 7:04 Electronically approved by: Johnathon Garcia M.D. on 05/02/2017 at 7:04
[2017-05-02] MEDS ORDERED: GELATIN SPONGE 12-7MM ONE (08:47)
[2017-05-02] MEDS: DOCUSATE SODIUM LIQD 100 MG/10 ML UDC NG SCH ×2 (08:52→17:00)
[2017-05-02] MEDS: METOPROLOL TARTRATE 25 MG TAB PO SCH ×2 (08:52→17:00)
--- NOTE | 2017-05-02 13:28 | Diagnostic Imaging Report ---
PROCEDURE:IR BIOPSY LIVER COMPARISON:CT scan of the abdomen and pelvis 04/27/2017. Preprocedure diagnosis: Multiple liver masses, presumed metastases Post procedure diagnosis: Multiple liver masses, presumed metastases Senior Interaction Designer: Johnathon Garcia M.D. Sedation/anesthesia: Fentanyl and Versed infusion was ordered by the ICU team. No additional sedation was administered. Refer to nursing record. Patient's heart rate and pulse oximetry were continuously monitored by the interventional radiology nurse. Blood pressure was monitored at 5 minute intervals. Complications: No immediate Estimated blood loss: Minimal Blood products administered: None Specimens: Fine needle aspiration specimens x2, core biopsy specimens x5 Implants/grafts: None Condition at completion of procedure: Guarded Disposition: Return to ICU Procedure in detail: Informed consent was obtained from the patient's next of kin and documented in the medical record after discussion of risks and benefits. The patient was placed in the right anterior oblique position on the sonographic table. Preliminary sonographic evaluation confirmed the presence of multiple peripherally hypoechoic hepatic masses. A suitable percutaneous approach was identified to a 3.5 cm ovoid lesion in the right hepatic lobe. The overlying skin was prepped and draped in standard sterile fashion. 1% lidocaine was infiltrated into the skin and subcutaneous tissues for local anesthesia. Then, under continuous sonographic guidance, a 16 gauge needle guide was advanced to the periphery of the lesion. Subsequently, 2 fine needle aspiration specimens were obtained using 20 gauge needles. Specimens were submitted to on site cytopathology personnel and adequacy was confirmed. Then, a total of 5 core biopsy specimens were obtained using an 18 gauge, 2 cm throw core biopsy apparatus. Specimens were submitted in formalin for histologic analysis. At the conclusion of sampling a small amount of Gelfoam slurry was slowly injected through the needle guide at the level of the liver capsule and subcutaneous tissues for augmentation of hemostasis. Post procedure evaluation of the upper abdomen showed no evidence of subcapsular or perihepatic hematoma. A sterile dressing was applied. Patient tolerated the procedure well without immediate complication. CONCLUSION: Successful ultrasound-guided fine needle aspiration and core biopsies of a right hepatic lesion without immediate complication. Dictated by: Johnathon Garcia M.D. on 05/02/2017 at 13:28 Electronically approved by: Johnathon Garcia M.D. on 05/02/2017 at 13:28
--- NOTE | 2017-05-02 13:29 | Diagnostic Imaging Report ---
PROCEDURE:FINE NEEDLE ASPIRATION IMAG COMPARISON:None. INDICATIONS:Liver Metastasis FINDINGS: See conclusion CONCLUSION: For full dictated report please refer to "BIOPSY LIVER" also from 05/02/2017. Dictated by: Johnathon Garcia M.D. on 05/02/2017 at 13:28 Electronically approved by: Johnathon Garcia M.D. on 05/02/2017 at 13:28
--- NOTE | 2017-05-02 13:30 | Diagnostic Imaging Report ---
PROCEDURE:ULTRASOUND GUIDANCE FOR PROCEDURE COMPARISON:None. INDICATIONS: Liver Metastasis PROCEDURE: See conclusion CONCLUSION: For full dictated report, refer to "BIOPSY LIVER" also from 05/02/2017. Electronically approved by: Johnathon Garcia M.D. on 05/02/2017 at 13:29
[2017-05-02] MEDS: ENOXAPARIN SOD INJ 40 MG/0.4 ML SYR SC SCH (17:40)
[2017-05-02] MEDS: ACETAMINOPHEN 325 MG/10 ML UDC NG PRN (19:43)
[2017-05-02] MEDS: MIRTAZAPINE 15 MG TAB PO SCH (20:41)
[2017-05-02] MEDS: PYRIDOXINE HCL 50 MG TAB PO SCH (20:41)
[2017-05-03] VITALS (69 sets, daily range): BP systolic 84–169; BP diastolic 48–96
[2017-05-03] MEDS: ACETAMINOPHEN 325 MG/10 ML UDC NG PRN ×3 (00:24→09:53)
[2017-05-03] MEDS: MIDAZOLAM HCL 25 MG in SODIUM CHLORIDE 0.9% 50ML 45 ML IV PRN (00:32)
[2017-05-03] MEDS: MEROPENEM 500 MG VIAL IV SCH ×4 (02:36→21:29)
[2017-05-03] MEDS: VANCOMYCIN 1GM/NS 250 ML 250 ML IV SCH ×2 (02:36→15:00)
[2017-05-03] MEDS ORDERED: FUROSEMIDE INJ 10 MG/ML 2 ML VIAL IV ONE (05:00)
[2017-05-03] MEDS: FENTANYL CITRATE INJ 2,000 MCG in SODIUM CHLORIDE 0.9% 250ML 210 ML IV PRN (05:08)
--- NOTE | 2017-05-03 05:55 | Diagnostic Imaging Report ---
EXAM: CHEST SINGLE (PORTABLE), AP 1 view INDICATION: Lung cancer, pneumonia COMPARISON: AP view of the chest May 02, 2017 FINDINGS: LINES/TUBES: Stable endotracheal tube, right internal jugular vein central line and nasal/orogastric tube. LUNGS: Stable right upper lung pleural-based mass PLEURA: Stable right pleural effusion. HEART AND MEDIASTINUM: Stable enlargement of the upper mediastinum. BONES AND SOFT TISSUES: No acute findings. IMPRESSION: No interval change Signed by: Dr. Heather Spaulding M.D. on 05/03/2017 5:51 AM
[2017-05-03 06:09] LABS: BASOPHILS # (AUTO) 0.1 (0.0-0.1); BASOPHILS % 0.7 % (0.0-1.0); EOSINOPHILS # (AUTO) 0.1 (0.0-0.4); EOSINOPHILS % 1.5 % (0.0-6.0); HEMATOCRIT 31.6 % (38.2-49.6); HEMOGLOBIN 9.7 g/dL (14.0-18.0); LYMPHOCYTES # (AUTO) 2.1 (1.0-3.2); LYMPHOCYTES % 25.4 % (18.0-39.1); MEAN CORPUSCULAR HEMOGLOBIN 29.7 pg (28-32); MEAN CORPUSCULAR HGB CONC 30.7 g/dL (31-35); MEAN CORPUSCULAR VOLUME 96.6 fL (81-99); MONOCYTES # (AUTO) 0.9 (0.2-0.8); MONOCYTES % 10.9 % (4.4-11.3); NEUTROPHILS # (AUTO) 4.4 (2.1-6.9); PLATELET COUNT 99 x10e3/uL (140-360); RED BLOOD COUNT 3.27 x10e6/uL (4.3-5.7); RED CELL DISTRIBUTION WIDTH 16.4 % (11.7-14.4)
[2017-05-03 06:34] LABS: ALANINE AMINOTRANSFERASE 69 IU/L (0-55); ALBUMIN 2.1 g/dL (3.5-5.0); ALBUMIN/GLOBULIN RATIO 0.6 (0.8-2.0); ALKALINE PHOSPHATASE 242 IU/L (40-150); ANION GAP 11.6 mmol/L (8-16); BLOOD UREA NITROGEN 29 mg/dL (7-26); BUN/CREATININE RATIO 33 (6-25); CALCIUM 11.2 mg/dL (8.4-10.2); CARBON DIOXIDE 35 mmol/L (22-29); CHLORIDE 108 mmol/L (98-107); CREATININE, SERUM 0.89 mg/dL (0.72-1.25); EST GLOMERULAR FILTRATION RATE > 60 ML/MIN (60-); GLUCOSE 140 mg/dL (74-118); POTASSIUM 3.6 mmol/L (3.5-5.1); SODIUM 151 mmol/L (136-145)
[2017-05-03] MEDS: DOCUSATE SODIUM LIQD 100 MG/10 ML UDC NG SCH ×2 (09:30→17:00)
[2017-05-03] MEDS: METOPROLOL TARTRATE 25 MG TAB PO SCH ×2 (09:31→17:00)
[2017-05-03] MEDS: DEXTROSE 5% 1,000 ML IV SCH ×2 (09:39→18:45)
[2017-05-03 10:47] LABS: ABG HCO3 39 mmol/L (23-28); ABG PCO2 51 mmHg (41-51); ABG PO2 144 mmHg (80-105)
[2017-05-03] MEDS: ENOXAPARIN SOD INJ 40 MG/0.4 ML SYR SC SCH (17:00)
[2017-05-03] MEDS: MIRTAZAPINE 15 MG TAB PO SCH (21:29)
[2017-05-03] MEDS: PYRIDOXINE HCL 50 MG TAB PO SCH (21:29)
[2017-05-04] VITALS (81 sets, daily range): BP systolic 71–164; BP diastolic 41–89
[2017-05-04] MEDS: MIDAZOLAM HCL 25 MG in SODIUM CHLORIDE 0.9% 50ML 45 ML IV PRN (02:20)
[2017-05-04] MEDS: MEROPENEM 500 MG VIAL IV SCH ×4 (03:50→20:28)
[2017-05-04] MEDS: DEXTROSE 5% 1,000 ML IV SCH (03:50)
[2017-05-04] MEDS: VANCOMYCIN 1GM/NS 250 ML 250 ML IV SCH ×2 (08:00→09:00)
[2017-05-04] MEDS: DOCUSATE SODIUM LIQD 100 MG/10 ML UDC NG SCH ×2 (09:00→17:00)
[2017-05-04] MEDS: METOPROLOL TARTRATE 25 MG TAB PO SCH ×2 (09:00→17:00)
[2017-05-04] MEDS ORDERED: FUROSEMIDE INJ 10 MG/ML 4 ML VIAL IV NR (10:15)
[2017-05-04] MEDS ORDERED: DIGOXIN INJ 0.25 MG/ML 2 ML AMP IV NR (12:15)
[2017-05-04] MEDS ORDERED: SODIUM CHLORIDE 0.9% 250ML 250 ML ONE (12:57)
--- NOTE | 2017-05-04 14:03 | Consultation ---
DATE OF CONSULTATION: May 04, 2017 CARDIOLOGY CONSULTATION REASON FOR CONSULTATION: AFib with RVR. REQUESTING PHYSICIAN: Dr. Pulliam HPI: This is a 61-year-old male that presented with shortness of breath and altered mental status. According to the nurse and medical record, he has a history of recurrent lung mass and altered mental status. He was brought in for evaluation. He has been in the ICU intubated and sedated. He was going through mechanical ventilation weaning, and the heart rate went to 150 to 170s, and cardiology was consulted. He has a history of TB and chronic back pain, also CAD. He is intubated and sedated. PAST MEDICAL HISTORY: Alcoholism, hypertension, testosterone insufficiency, chronic back pain, depression, anxiety, rheumatoid arthritis, smoking, CAD, TB, and chronic pain. PAST SURGICAL HISTORY: Multiple lumbar laminectomies and CABG last year. FAMILY HISTORY: Positive for CAD. SOCIAL HISTORY: Lives at home with family. Quit smoking and drinking. MEDICATIONS: See med list. ALLERGIES: HE IS ALLERGIC TO PENICILLIN. REVIEW OF SYSTEMS: Unable to obtain. He is intubated and sedated. PHYSICAL EXAMINATION VITAL SIGNS: Temperature 99, heart rate 73, blood pressure 101/58, respirations 16, oxygen saturation 95% on mechanical ventilator. GENERAL: He is intubated and sedated. HEENT: Mucous membranes are moist. NECK: Supple. LUNGS: Decreased breath sounds. CARDIOVASCULAR: Irregularly irregular and fluctuates to sinus rhythm. ABDOMEN: Soft. NEUROLOGIC: He is sedated. EXTREMITIES: Trace edema. LABS: Sodium 151, potassium 3.6, chloride 108, CO2 35, BUN 29, creatinine 0.89, glucose 140. White blood cells 8.27, hemoglobin 9.7, hematocrit 31.6, platelets 99. PT 15.5, PTT 35.7, INR 1.33. IMPRESSION 1. Possible atrial flutter, supraventricular tachycardia or sinus tachycardia. 2. Coronary artery disease with coronary artery bypass graft. 3. Lung cancer. 4. Chronic obstructive pulmonary disease. 5. Respiratory failure. 6. Pneumonia. 7. Hypertension. 8. History of tuberculosis. 9. History of rheumatoid arthritis. 10. History of anxiety and depression. ASSESSMENT AND PLAN: He converted to normal sinus rhythm. Blood pressure on the low side, so we will go ahead and hold beta blockers. Will get an echo to assess the LV and the valve function. Will check thyroid function test and magnesium. Continue his current medications. Further cardiac workup pending clinical course. Thank you for this consultation. Dictated by Peyton Katz NP. Job#: [id number]
[2017-05-04] MEDS ORDERED: HYDROMORPHONE 20MG/ NS 100ML IV PRN (15:30)
[2017-05-04] MEDS: ENOXAPARIN SOD INJ 40 MG/0.4 ML SYR SC SCH (17:00)
[2017-05-04] MEDS: PYRIDOXINE HCL 50 MG TAB PO SCH (20:28)
[2017-05-04] MEDS: MIRTAZAPINE 15 MG TAB PO SCH (20:28)
[2017-05-05] VITALS (46 sets, daily range): BP systolic 102–177; BP diastolic 57–136
[2017-05-05] MEDS: MEROPENEM 500 MG VIAL IV SCH ×4 (04:15→21:48)
[2017-05-05 06:04] LABS: BASOPHILS % 0.2 % (0.0-1.0); EOSINOPHILS # (AUTO) 0.1 (0.0-0.4); EOSINOPHILS % 1.1 % (0.0-6.0); HEMATOCRIT 33.5 % (38.2-49.6); HEMOGLOBIN 10.3 g/dL (14.0-18.0); LYMPHOCYTES # (AUTO) 1.9 (1.0-3.2); LYMPHOCYTES % 19.2 % (18.0-39.1); MEAN CORPUSCULAR HEMOGLOBIN 29.4 pg (28-32); MEAN CORPUSCULAR HGB CONC 30.7 g/dL (31-35); MEAN CORPUSCULAR VOLUME 95.7 fL (81-99); MONOCYTES # (AUTO) 0.8 (0.2-0.8); MONOCYTES % 7.6 % (4.4-11.3); NEUTROPHILS # (AUTO) 6.2 (2.1-6.9); NEUTROPHILS % 62.1 % (38.7-80.0); PLATELET COUNT 92 x10e3/uL (140-360); RED CELL DISTRIBUTION WIDTH 15.8 % (11.7-14.4)
--- NOTE | 2017-05-05 06:24 | Diagnostic Imaging Report ---
EXAM: CHEST SINGLE (PORTABLE), AP 1 view INDICATION: Intubated COMPARISON: AP view of the chest May 03, 2017 FINDINGS: LINES/TUBES: Stable endotracheal tube tip that appears to terminate at the thoracic inlet. Stable right internal jugular vein central line and partially visualized nasal/orogastric tube. LUNGS: Stable right upper lung pleural-based mass. Mild bibasilar atelectasis. PLEURA: No effusions or pneumothorax. HEART AND MEDIASTINUM: Stable enlargement of the upper mediastinum. The heart is within normal size limits. Stable median sternotomy wires and mediastinal clips. BONES AND SOFT TISSUES: No acute findings. IMPRESSION: No interval change. Signed by: Dr. Heather Spaulding M.D. on 05/05/2017 6:20 AM
[2017-05-05 06:26] LABS: ANION GAP 13.6 mmol/L (8-16); BLOOD UREA NITROGEN 27 mg/dL (7-26); BUN/CREATININE RATIO 33 (6-25); CALCIUM 11.4 mg/dL (8.4-10.2); CARBON DIOXIDE 34 mmol/L (22-29); CHLORIDE 100 mmol/L (98-107); CREATININE, SERUM 0.81 mg/dL (0.72-1.25); EST GLOMERULAR FILTRATION RATE > 60 ML/MIN (60-); GLUCOSE 217 mg/dL (74-118); MAGNESIUM 1.5 MG/DL (1.3-2.1); POTASSIUM 3.6 mmol/L (3.5-5.1); SODIUM 144 mmol/L (136-145)
[2017-05-05 06:40] LABS: THYROID STIMULATING HORMONE 0.758 uIU/mL (0.350-4.940)
[2017-05-05] MEDS: METOPROLOL TARTRATE INJ 1 MG/ML VIAL IV PRN (08:50)
[2017-05-05] MEDS ORDERED: METOPROLOL TARTRATE 25 MG TAB PO SCH (09:00)
[2017-05-05] MEDS: VANCOMYCIN 1GM/NS 250 ML 250 ML IV SCH (09:23)
[2017-05-05] MEDS: DOCUSATE SODIUM LIQD 100 MG/10 ML UDC NG SCH ×2 (09:23→15:51)
[2017-05-05] MEDS: METOPROLOL TARTRATE 50 MG TAB PO SCH ×2 (09:24→17:00)
[2017-05-05 10:28] LABS: BAND NEUTROPHILS % (MANUAL) 8 %; EOSINOPHILS % (MANUAL) 2 % (0-7); LYMPHOCYTES % (MANUAL) 20 % (19-48); METAMYELOCYTES % (MANUAL) 3 % (0-0); MONOCYTES % (MANUAL) 8 % (3.4-9.0); MYELOCYTES % (MANUAL) 3 % (0-0); NEUTROPHILS % (MANUAL) 56 % (40-74); NUCLEATED RED BLOOD CELLS 2
[2017-05-05 10:29] LABS: PLATELET ESTIMATE SLIGHTLY DECREASED; PLATELET MORPHOLOGY COMMENT FEW LARGE
[2017-05-05 10:32] LABS: ANISOCYTOSIS SLIGHT; HYPOCHROMASIA SLIGHT; RBC MORPHOLOGY COMMENT NORMAL
[2017-05-05 10:55] LABS: ABG HCO3 42 mmol/L (23-28); ABG PCO2 48 mmHg (41-51); ABG PH 7.55 (7.31-7.41); ABG PO2 200 mmHg (80-105)
[2017-05-05] MEDS ORDERED: FUROSEMIDE INJ 10 MG/ML 4 ML VIAL ONE (11:26)
[2017-05-05] MEDS ORDERED: FUROSEMIDE INJ 10 MG/ML 4 ML VIAL IV ONE (14:00)
[2017-05-05] MEDS: MORPHINE SULFATE 2 MG/ML SYR IV PRN ×3 (14:27→18:58)
[2017-05-05] MEDS: ENOXAPARIN SOD INJ 40 MG/0.4 ML SYR SC SCH (17:00)
[2017-05-05] MEDS ORDERED: MORPHINE SULFATE 4 MG/ML SYR IV PRN (18:15)
[2017-05-05] MEDS: MIRTAZAPINE 15 MG TAB PO SCH (20:44)
[2017-05-05] MEDS: ALPRAZOLAM 0.5 MG TAB PO PRN (20:45)
[2017-05-05] MEDS: ACETAMINOPHEN 325 MG/10 ML UDC NG PRN (20:45)
[2017-05-05] MEDS: PYRIDOXINE HCL 50 MG TAB PO SCH (20:45)
[2017-05-06] VITALS (11 sets, daily range): BP systolic 150–176; BP diastolic 81–105
[2017-05-06] MEDS: MEROPENEM 500 MG VIAL IV SCH ×2 (03:00→08:53)
[2017-05-06] MEDS: ACETAMINOPHEN 325 MG/10 ML UDC NG PRN (05:34)
[2017-05-06] MEDS: ALPRAZOLAM 0.5 MG TAB PO PRN (05:34)
[2017-05-06] MEDS ORDERED: MORPHINE SULFATE 2 MG/ML SYR IV PRN (07:00)
[2017-05-06] MEDS: MORPHINE SULFATE 2 MG/ML SYR IV PRN (07:25)
[2017-05-06] MEDS: METOPROLOL TARTRATE 50 MG TAB PO SCH (08:53)
[2017-05-06] MEDS: DOCUSATE SODIUM LIQD 100 MG/10 ML UDC NG SCH (08:53)
[2017-05-06] MEDS: VANCOMYCIN 1GM/NS 250 ML 250 ML IV SCH (08:53)
[2017-05-06] MEDS ORDERED: BALSAM PERU/CASTOR OIL 60 GM OINT...G. TP SCH (09:00)
--- NOTE | 2017-05-06 13:05 | Progress Note ---
DATE: May 06, 2017 Mr. Juan is in the intensive care unit. He is nonresponsive. There is no family here. Events were reviewed and the patient diagnosed with malignancy and family requested hospice, which I totally agree with. PHYSICAL EXAMINATION GENERAL: He is nonverbal. Does not seem to be in acute distress. VITAL SIGNS: Stable, currently. HEENT: Not icteric. CHEST: A few crackles HEART: S1 and S2, no murmur. IMPRESSION: Cancer with lung metastases. The patient is going hospice. Can discontinue antibiotics. Will sign off. Job#: [id number]
== END 2017-05-06 12:15 | disposition hospice, home (50) | DRG 207 ==
LOC: ER 10:30 → ERHOLD 15:00 → IMCU 17:20 → ER 17:20 → ICU 04-28 10:56
PROVIDERS: ADMIT Family Medicine; ATTEND Family Medicine
PROC: 0BH17EZ Insertion of Endotracheal Airway into Trachea, Via Natural or Artificial Opening (ICD-10-PCS; principal; 2017-04-28)
PROC: 5A1955Z Respiratory Ventilation, Greater than 96 Consecutive Hours (ICD-10-PCS; principal; 2017-04-28)
PROC: 02HV33Z Insertion of Infusion Device into Superior Vena Cava, Percutaneous Approach (ICD-10-PCS; 2017-04-28)
PROC: 3E1F88X Irrigation of Respiratory Tract using Irrigating Substance, Via Natural or Artificial Opening Endoscopic, Diagnostic (ICD-10-PCS; 2017-05-01)
PROC: 30233N1 Transfusion of Nonautologous Red Blood Cells into Peripheral Vein, Percutaneous Approach (ICD-10-PCS; 2017-05-01)
PROC: 0W993ZX Drainage of Right Pleural Cavity, Percutaneous Approach, Diagnostic (ICD-10-PCS; 2017-05-01)
PROC: 0FB03ZX Excision of Liver, Percutaneous Approach, Diagnostic (ICD-10-PCS; 2017-05-02)
PROC: 02HV33Z Insertion of Infusion Device into Superior Vena Cava, Percutaneous Approach (ICD-10-PCS; 2017-05-02)
PROC: 0F903ZX Drainage of Liver, Percutaneous Approach, Diagnostic (ICD-10-PCS; 2017-05-02)
DX: C34.90 Malignant neoplasm of unspecified part of unspecified bronchus or lung (principal); J18.9 Pneumonia, unspecified organism; J90 Pleural effusion, not elsewhere classified; E87.0 Hyperosmolality and hypernatremia; C78.7 Secondary malignant neoplasm of liver and intrahepatic bile duct; I48.91 Unspecified atrial fibrillation; E83.52 Hypercalcemia; J96.90 Respiratory failure, unspecified, unspecified whether with hypoxia or hypercapnia; J96.01 Acute respiratory failure with hypoxia; J44.0 Chronic obstructive pulmonary disease with (acute) lower respiratory infection; J44.1 Chronic obstructive pulmonary disease with (acute) exacerbation; C7A.8 Other malignant neuroendocrine tumors; R41.82 Altered mental status, unspecified; Z79.01 Long term (current) use of anticoagulants; I25.10 Atherosclerotic heart disease of native coronary artery without angina pectoris; Z95.1 Presence of aortocoronary bypass graft; Z86.11 Personal history of tuberculosis; M06.9 Rheumatoid arthritis, unspecified; F32.9 Major depressive disorder, single episode, unspecified; F41.9 Anxiety disorder, unspecified; G89.4 Chronic pain syndrome; Z86.718 Personal history of other venous thrombosis and embolism; F17.210 Nicotine dependence, cigarettes, uncomplicated; F10.20 Alcohol dependence, uncomplicated; E87.6 Hypokalemia; R06.89 Other abnormalities of breathing; N52.9 Male erectile dysfunction, unspecified; E87.8 Other disorders of electrolyte and fluid balance, not elsewhere classified; T40.2X5A Adverse effect of other opioids, initial encounter
CPT/HCPCS: 10022; 31623; 32555; 36415; 36430; 36556; 36600; 47000; 51700; 70450; 71045; 71260; 74177; 74470; 76937; 76942; 80048; 80053; 80202; 82140; 82270; 82378; 82784; 82805; 82945; 82948; 82977; 83540; 83605; 83615; 83735; 83880; 84100; 84152; 84157; 84443; 84466; 84484; 85025; 85610; 85730; 86304; 86850; 86900; 86920; 87040; 87070; 87102; 87116; 87205; 87206; 87335; 87493; 88112; 88172; 88173; 88305; 88307; 88312; 88342; 89051; 93005; 93306; 94002; 94003; 96360; 96367; 99285; C1751; J1650; J1940; J2060; J2185; J2250; J2270; J2310; J2997; J3370; J3411; J3480; J3486; J7030; J7050; J7070; P9016; Q9967